=== PATIENT | male | born 1950 | race Caucasian/White ===

== ENCOUNTER 2020-01-29 14:25 | Outpatient (CLI) | payer MEDICARE, SELFPAY ==
[2020-01-29 16:15] LABS: Free T4 Free Thyroxine 1.49 ng/mL (0.78-2.19)
== END 2020-01-29 14:26 | disposition home or self-care (01) ==
LOC: ANHLAB 14:32
PROVIDERS: PCP Family Medicine Adolescent Medicine; Visit Provider Physician Assistant
DX: E03.9 Hypothyroidism, unspecified (principal)
CPT/HCPCS: 36415; 84439

== ENCOUNTER 2020-04-18 01:27 | Outpatient (CLI) | payer MEDICARE, SELFPAY ==
[2020-04-18 16:42] LABS: SARS-CoV-2 RNA PCR Negative
== END 2020-04-18 01:28 | disposition home or self-care (01) ==
LOC: ANHCOVIDDT 01:27
PROVIDERS: PCP Family Medicine Adolescent Medicine; Visit Provider Internal Medicine Cardiovascular Disease
DX: Z01.812 Encounter for preprocedural laboratory examination (principal); Z20.828 Contact with and (suspected) exposure to other viral communicable diseases
CPT/HCPCS: 87635; C9803; U0003

== ENCOUNTER 2020-04-21 05:30 | Day surgery (SDC) | payer MEDICARE, SELFPAY ==
[2020-04-20 17:07] VITALS: BMI 29.2
[2020-04-21] VITALS (10 sets, daily range): BP systolic 129–172; BP diastolic 57–100; PULSE 47–57; RESP 13–20; TEMP 36.8; O2SAT 94–100; BMI 29.2
[2020-04-21 08:57] LABS: Hematocrit 39.2 % (42.0-52.0); Hemoglobin 13.2 g/dL (14.0-18.0); Immature Platelet Fraction Pct 1.5 % (0.9-11.2); Mean Corpuscular HGB Conc 33.7 g/dl (32-36); Mean Corpuscular Hemoglobin 32.2 pg (26-34); Mean Corpuscular Volume 95.6 fl (80-100); Platelet Count Result 173 k/mm3 (150-375); Red Cell Distribution Width 13.8 % (11.5-14.5); White Blood Count 4.8 K/mm3 (4.5-10.0)
[2020-04-21 09:06] LABS: Blood Urea Nitrogen 19 mg/dL (9-20); Calcium 9.3 mg/dL (8.4-10.2); Carbon Dioxide 29 mmol/L (22-30); Chloride 103 mmol/L (98-107); Estimated CRCL calculation 63 ml/min; Estimated Glomerular Filt Rate > 60; Glucose 121 mg/dL (75-110); Potassium 4.4 mmol/L (3.4-5.0); Sodium 139 mmol/L (137-145)
--- NOTE | 2020-04-21 09:20 | SUR.PREOP ---
0840-pt presents to the [facility] for a ELIZABETH. No distress noted. AOx4. Questions answered and verbalized understanding. Consent signed. PIV started and labs obtained and sent per order. Will continue to monitor.
--- NOTE | 2020-04-21 10:24 | WPDHPUPDATE1 ---
History and Physical Update Update Date/Time: 04/21/20 10:24 History and Physical has been reviewed, including an updated exam of the patient. There are NO changes in the patient's condition. Risks, benefits, and alternatives have been discussed and questions answered. Patient agrees to proceed with procedure.
--- NOTE | 2020-04-21 10:24 | WPDMODSED ---
Moderate Sedation Note-Pt Data Patient Data Diagnosis: Mitral regurgitation Present Complaint: None Procedure to be performed/Plan: Transesophageal echocardiogram Allergies Allergy/AdvReac Type Severity Reaction Status Date / Time No Known Allergies Allergy Unverified 04/20/20 16:55 Home Medications Medication Instructions Recorded Confirmed Type C,E,zinc,copper [id number] 1 cap PO DAILY 04/20/20 04/20/20 History [Ocuvite Adult 50 Plus] amiodarone 400 mg PO DAILY 04/20/20 04/20/20 History apixaban [Eliquis] 5 mg PO BID 04/20/20 04/20/20 History glimepiride 1 mg PO DAILY 04/20/20 04/20/20 History losartan 100 mg PO DAILY 04/20/20 04/20/20 History magnesium 200 mg PO BID 04/20/20 04/20/20 History metformin 500 mg PO BID 04/20/20 04/20/20 History metoprolol succinate 200 mg PO DAILY 04/20/20 04/20/20 History multivitamin 1 tablet PO DAILY 04/20/20 04/20/20 History simvastatin 40 mg PO HS 04/20/20 04/20/20 History Current Medications: See this Sedation/Anesthesia: No previous sedation/anesthesia problems (including family history). [facility] Past Medical History Medical History Diabetes mellitus History of cardiomyopathy Hypertension Mitral regurgitation Paroxysmal atrial fibrillation Family History Family History Unknown No cardiac disease Social History Social History Social History: , lives with Smoking status: Never smoker Mod Sed Physical Exam Physical Exam Pre Procedural Exam: Normal: Appearance, Eyes, Ears, Nose, Neck (Supple, normal range of motion), Throat (Posterior hypopharynx clear, nonerythematous), Airway (Normal anatomy, no obstruction), Lungs (Clear to auscultation bilaterally), Heart Size, Heart Rate, Neuro Exam, Abdomen, Liver, Kidneys, Extremities and Skin and Variation: Heart Rhythm (Irregularly irregular) Hours since solid foods: 12 Hours since liquid intake: 12 Internal Medicine - PN: Obj Da Vital Signs Vital Signs: Vital Signs - 24 hr 04/21/20 08:59 Temperature 36.8 C Pulse Rate 54 L Respiratory Rate 20 Blood Pressure 172/73 H Pulse Oximetry 100 Labs CBC & Chem 7: 04/21/20 08:49 04/21/20 08:49 Labs: Laboratory Results - last 24 hr 04/21/20 04/21/20 08:49 08:49 WBC 4.8 RBC 4.10 L Hgb 13.2 L Hct 39.2 L MCV 95.6 MCH 32.2 MCHC 33.7 RDW 13.8 Plt Count 173 MPV 9.0 % Immature Plt Fraction 1.5 Sodium 139 Potassium 4.4 Chloride 103 Carbon Dioxide 29 BUN 19 Creatinine 1.00 Estim Creat Clear Calc 63 Estimated GFR > 60 Glucose 121 H Calcium 9.3 TSH 7.310 H ASA Classification/Sedation ASA Classification/Sedation ASA Class: III Emergent: No Risks: Risks, benefits and alternatives explained and patient/family accepted plan for sedation. Patient re-evaluated immediately prior to sedation.
--- NOTE | 2020-04-21 11:01 | WPDTEECHO ---
ELIZABETH TransEsophageal Echocardiogram Date of procedure: 04/21/20 Procedure Type: Transesophageal echocardiogram Diagnosis: Mitral regurgitation Indications: Mitral regurgitation Image Quality: Good Findings: Brief history present illness: Patient is a pleasant 69-year-old male with a history of cardiomyopathy, paroxysmal atrial fibrillation, hypertension, diabetes mellitus, dyslipidemia with suggestion of moderate to severe mitral regurgitation on echocardiogram referred for transesophageal echocardiogram for further evaluation of mitral regurgitation severity to clarify management. Procedure in detail: After verbal and written informed consent was obtained the patient risks, benefits, and alternatives explained in detail the patient agreed to proceed with the plan of care as outlined above. The patient was evaluated at bedside in the [facility] procedure room. The posterior oropharynx, neck, and jaw angle all within normal limits on examination. Lungs were clear to auscultation. See pre-sedation note for further details The patient was then placed in the appropriate 30 to 45 degree angle supine position at a slight left lateral decubitus position. Patient was monitored throughout the study with telemetry, oxygen saturation, end-tidal CO2 monitoring, blood pressure, heart rate, and respirations. The posterior hypopharynx was then locally anesthetized using repeated administration of Hurricaine spray as well as gargled viscous lidocaine. After local anesthetic of the posterior hypopharynx was achieved and the oral bite block placed, moderate sedation was administered. After confirmation of adequate moderate sedation, the transesophageal echocardiogram probe was advanced through the oral bite block into the posterior hypopharynx and into the esophagus easily and without complication. Multiple, multiplanar echocardiographic images were obtained in multiple standard re- projections. Pulsed wave, continuous-wave, and color-flow Doppler were utilized in conjunction with this study. At the conclusion of the study, the transesophageal echocardiogram probe was removed easily and without complication. The patient tolerated the procedure well without difficulty. Patient was in sinus rhythm throughout the study. Moderate Sedation/Anesthesia administration: Patient reports no prior problems with sedation/anesthesia. Please see pre-sedation noted for physical examination documentation. As noted above, after adequate local anesthesia of the posterior hypopharynx was achieved, a total of 2 mg intravenous Versed and a total of 75 mcg intravenous Fentanyl in multiple divided doses was administered for moderate sedation. Sedation start time was 1037 and end time was 1059 for a total intra-service/procedure face-face time of 22 minutes. Sedation was administered by a qualified/certified observer Chepe Matute RN under my supervision with intra-procedure [id number] observation and management throughout the entirety of the procedure. There were no other issues or complications and patient tolerated the procedure well. See post-anesthesia documentation. Findings: Left ventricular size and systolic function within normal limits without wall motion abnormalities with ejection fraction of 60%. Right ventricular size and systolic function withinnormal limits. Left atrium is mildly enlarged. Right atrial size is normal. Interatrial septum is anatomically normal without evidence of shunt with color-flow Doppler nor with injection of agitated saline. Mitral valve is anatomically normal with preserved leaflet excursion. There is mild thickening at leaflet tips with mild mal-coaptation evident. There are at least 2 separate regurgitant jets identified with the largest mild to at moderate in severity. The tricuspid valve is anatomically normal with normal leaflet excursion with trivial regurgitation identified. No mobile elements identified. The aortic valve was an an
--- NOTE | 2020-04-21 12:37 | SUR.PHASEII ---
1215-pt given D/C orders and instructions. Questions answered and verbalized understanding. PIV removed intact. Taken via wheelchair to waiting vehicle. No distress verbalized or observed at time of departure.
== END 2020-04-21 12:14 | disposition home or self-care (01) ==
PROVIDERS: PCP Family Medicine Adolescent Medicine; Visit Provider Internal Medicine Cardiovascular Disease
PROC: (CPT 93312; principal; 2020-04-21 10:00)
DX: I34.0 Nonrheumatic mitral (valve) insufficiency (principal); I48.0 Paroxysmal atrial fibrillation; I42.9 Cardiomyopathy, unspecified; I11.0 Hypertensive heart disease with heart failure; I50.42 Chronic combined systolic (congestive) and diastolic (congestive) heart failure; E78.5 Hyperlipidemia, unspecified; E11.9 Type 2 diabetes mellitus without complications; Z79.01 Long term (current) use of anticoagulants; Z79.84 Long term (current) use of oral hypoglycemic drugs
CPT/HCPCS: 36415; 80048; 84443; 85027; 85055; 93312; 93320; 93325; J2250; J3010; J7040

== ENCOUNTER 2020-04-23 07:36 | Outpatient (CLI) | payer MEDICARE, SELFPAY | END 2020-04-23 07:37 | disposition home or self-care (01) | PROVIDERS: PCP Family Medicine Adolescent Medicine | DX: I48.19 Other persistent atrial fibrillation (principal) | CPT/HCPCS: 36415; 84443 ==

== ENCOUNTER 2020-06-03 12:21 | Outpatient (RCR) | payer SELFPAY | END 2020-06-03 23:59 | disposition home or self-care (01) | LOC: ANHAUDIO 12:21 | PROVIDERS: PCP Family Medicine Adolescent Medicine; Visit Provider Family Medicine Adolescent Medicine | DX: Z46.1 Encounter for fitting and adjustment of hearing aid (principal) | CPT/HCPCS: 99199 ==

== ENCOUNTER 2020-07-16 07:07 | Outpatient (CLI) | payer MEDICARE, SELFPAY ==
[2020-07-16 08:02] LABS: Alanine Aminotransferase 60 U/L (4-50); Albumin Level 4.4 g/dL (3.5-5.1); Alkaline Phosphatase 34 U/L (38-126); Anion Gap 7 mmol/L (8-16); Aspartate Amino Transferase 42 U/L (17-59); Blood Urea Nitrogen 26 mg/dL (9-20); Calcium 8.9 mg/dL (8.4-10.2); Carbon Dioxide 26 mmol/L (22-30); Chloride 106 mmol/L (98-107); Estimated Glomerular Filt Rate 55; Glucose 102 mg/dL (75-110); Potassium 4.1 mmol/L (3.4-5.0); Sodium 139 mmol/L (137-145)
[2020-07-16 11:26] LABS: Free T4 Free Thyroxine Reflex 1.44 ng/dL (0.78-2.19)
[2020-07-16 13:13] LABS: Total Triiodothyronine (T3) 0.94 NG/ML (0.97-1.69)
== END 2020-07-16 07:08 | disposition home or self-care (01) ==
PROVIDERS: PCP Family Medicine Adolescent Medicine; Visit Provider Nurse Practitioner Adult Health
DX: Z79.899 Other long term (current) drug therapy (principal)
CPT/HCPCS: 36415; 80053; 84439; 84443; 84480

== ENCOUNTER 2020-09-16 07:09 | Outpatient (CLI) | payer MEDICARE, SELFPAY ==
[2020-09-16 07:45] LABS: Anion Gap 7 mmol/L (8-16); Blood Urea Nitrogen 23 mg/dL (9-20); Calcium 9.1 mg/dL (8.4-10.2); Carbon Dioxide 30 mmol/L (22-30); Chloride 104 mmol/L (98-107); Estimated Glomerular Filt Rate 60; Glucose 146 mg/dL (75-110); Potassium 4.4 mmol/L (3.4-5.0); Sodium 141 mmol/L (137-145)
== END 2020-09-16 07:10 | disposition home or self-care (01) ==
PROVIDERS: PCP Family Medicine Adolescent Medicine; Visit Provider Internal Medicine Cardiovascular Disease
DX: E11.59 Type 2 diabetes mellitus with other circulatory complications (principal); I10 Essential (primary) hypertension
CPT/HCPCS: 36415; 80048

== ENCOUNTER 2020-11-24 09:55 | Outpatient (RCR) | payer MEDICARE, SELFPAY | END 2020-11-24 23:59 | disposition home or self-care (01) | LOC: ANHAUDIO 09:55 | PROVIDERS: PCP Family Medicine Adolescent Medicine; Visit Provider Family Medicine Adolescent Medicine | DX: Z46.1 Encounter for fitting and adjustment of hearing aid (principal) | CPT/HCPCS: 99199 ==

== ENCOUNTER → 2021-02-19 01:41 | Outpatient (CLI) | payer MEDICARE, SELFPAY ==
[2021-02-19 19:39] LABS: SARS-CoV-2 RNA PCR Negative
== END ==
PROVIDERS: PCP Family Medicine Adolescent Medicine; Visit Provider Internal Medicine Gastroenterology
DX: Z01.812 Encounter for preprocedural laboratory examination (principal); Z20.822 Contact with and (suspected) exposure to COVID-19
CPT/HCPCS: C9803; U0003; U0005

== ENCOUNTER 2021-02-22 00:38 | Day surgery (SDC) | payer MEDICARE, SELFPAY ==
[2021-02-09 14:15] VITALS: BMI 28.6
--- NOTE | 2021-02-12 09:30 | PC.NURSE ---
Received instruction from Dr. Fitzgerald regarding Eliquis hold for pt's procedure on 02/22/[address] Barney. Called and instructed pt. to hold Eliquis for 48 hours prior to procedure, as instructed by Dr. Fitzgerald. Pt. verbalizes understanding. Papo Shah RN 02/12/21 0930
[2021-02-22 11:33] VITALS: BP 151/82; PULSE 82; RESP 18; TEMP 36.3; O2SAT 99; BMI 29.1
[2021-02-22] MEDS: LACTATED RINGERS 1,000 ML 150 ML IV CONT (11:44)
[2021-02-22 11:48] LABS: Glucose Point of Care 130 (65-105)
--- NOTE | 2021-02-22 12:02 | WPDGICN ---
GI Consult Note Consult date/time: 02/22/21 12:02 HPI: The reason for visit is colonoscopy. This very pleasant gentleman seen in consultation request of the primary physician. Impression: Screening and surveillance colonoscopy. The patient has history adenomatous colon polyps. Atrial fibrillation status post ablation. Cardiomyopathy. DM. HLD. HTN. Recommendation: Colonoscopy. History: This very pleasant gentleman is negative GI review systems. He has a history of adenomatous colon polyps. He is here for screening and surveillance. Physical examination: General: very pleasant patient in no acute distress. HEENT: Head was normocephalic sclerae is clear mouth without masses neck was supple. Heart: Rate rhythm regular without S3 or S4. Lungs: CTA. Abdomen: Soft with no guarding or rigidity. Bowel sounds were active. Neurologic: Cranial nerves 2 through 12 intact. No focal defects. No clonus. Musculoskeletal system: Revealed no joint tenderness or swelling no muscle atrophy. Extremities: Reveal no significant edema. Skin: Warm and dry with normal turgor. Mental status: intact. Patient is alert and oriented. Review of Systems Review of Systems: All systems reviewed & are unremarkable except as noted in HPI and below PMFSH Past Medical History Medical History (Updated 02/22/21 @ 12:06 by Beny Barney DO) Adenomatous colon polyp Congestive heart failure (CHF) EF 60% Diabetes mellitus History of cardiomyopathy Hypertension Mitral regurgitation Paroxysmal atrial fibrillation Surgical History Surgical History (Updated 02/22/21 @ 12:06 by Beny Barney DO) H/O cardiac radiofrequency ablation History of lung surgery Hx of colonoscopy Family History Family History Unknown No cardiac disease Social History Social History Social History: , lives with Smoking status: Never smoker Alcohol intake: current Drinks per week: 1 Living arrangements: with family Gender identity (if verbalized by the patient): Male Spiritual care concerns: No Meds Home Medications and Allergies Home Medications Medication Instructions Recorded Confirmed Type Eliquis 5 mg PO BID 04/20/20 02/09/21 History Ocuvite Adult 50 Plus 1 cap PO DAILY 04/20/20 02/09/21 History glimepiride 1 mg PO DAILY 04/20/20 02/09/21 History losartan 100 mg PO DAILY 04/20/20 02/09/21 History magnesium 400 mg PO BID 04/20/20 02/09/21 History metformin 500 mg PO BID 04/20/20 02/09/21 History metoprolol succinate 100 mg PO DAILY 04/20/20 02/09/21 History multivitamin 1 tablet PO DAILY 04/20/20 02/09/21 History simvastatin 40 mg PO HS 04/20/20 02/09/21 History ascorbic acid (vitamin C) 1 g PO DAILY 02/09/21 02/09/21 History cholecalciferol (vitamin D3) 125 mcg PO DAILY 02/09/21 02/09/21 History [Vitamin D3] hydrochlorothiazide 12.5 mg PO DAILY 02/09/21 02/09/21 History zinc 100 mg PO DAILY 02/09/21 02/09/21 History Allergies Allergy/AdvReac Type Severity Reaction Status Date / Time No Known Allergies Allergy Verified 02/22/21 11:31 Vital Signs Vital Signs - 24 hr 02/22/21 11:33 Temperature 36.3 C L Pulse Rate 82 Respiratory Rate 18 Blood Pressure 151/82 H Pulse Oximetry 99
--- NOTE | 2021-02-22 12:02 | WPDANESEPPF ---
Anes - Initial Pre Proc Eval Procedure: Operation Date: 02/22/21 12:00 Proposed Procedures p Screening Colonoscopy - Beny Barney DO Date/Time: 02/22/21 12:02 Surgeon: Beny Barney DO Pre Op Diagnosis: neoplasm screening Patient Data Age: 70 Gender: M Height: 5 ft 9 in Weight: 89.5 kg Last Vital Signs Temp 97.4 F L 02/22/21 11:33 Pulse 82 02/22/21 11:33 Resp 18 02/22/21 11:33 BP 151/82 H 02/22/21 11:33 Pulse Ox 99 02/22/21 11:33 Allergies Allergy/AdvReac Type Severity Reaction Status Date / Time No Known Allergies Allergy Verified 02/22/21 11:31 Home Medications Medication Instructions Recorded Confirmed Type Eliquis 5 mg PO BID 04/20/20 02/09/21 History Ocuvite Adult 50 Plus 1 cap PO DAILY 04/20/20 02/09/21 History glimepiride 1 mg PO DAILY 04/20/20 02/09/21 History losartan 100 mg PO DAILY 04/20/20 02/09/21 History magnesium 400 mg PO BID 04/20/20 02/09/21 History metformin 500 mg PO BID 04/20/20 02/09/21 History metoprolol succinate 100 mg PO DAILY 04/20/20 02/09/21 History multivitamin 1 tablet PO DAILY 04/20/20 02/09/21 History simvastatin 40 mg PO HS 04/20/20 02/09/21 History ascorbic acid (vitamin C) 1 g PO DAILY 02/09/21 02/09/21 History cholecalciferol (vitamin D3) 125 mcg PO DAILY 02/09/21 02/09/21 History [Vitamin D3] hydrochlorothiazide 12.5 mg PO DAILY 02/09/21 02/09/21 History zinc 100 mg PO DAILY 02/09/21 02/09/21 History Laboratory Tests 02/22/21 11:40 POC Capillary Glucose 130 mg/dl H mg/dl (65-105) Patient hx anesthesia problems: none Family hx anesthesia problems: none PMFSH Past Medical History Medical History (Updated 02/22/21 @ 12:03 by Zaheer Jurado MD) Congestive heart failure (CHF) EF 60% Diabetes mellitus History of cardiomyopathy Hypertension Mitral regurgitation Paroxysmal atrial fibrillation Family History Family History Unknown No cardiac disease Social History Social History Social History: , lives with Smoking status: Never smoker Alcohol intake: current Drinks per week: 1 Living arrangements: with family Gender identity (if verbalized by the patient): Male Spiritual care concerns: No Anes - Eval Final PreProcedure Day of Procedure 02/22/21 12:02 Patient weight: overweight Heart: regular rate and rhythm Lungs: clear to auscultation Airway: Mallampati scale class II Neurological: alert and oriented Last oral intake: >/= 8 hours ASA classification: III Emergent: no Anesthetic plan: proceed Anesthesia type and monitoring: general GIVS and standard monitoring Informed Consent: The patient's anesthetic plan and its attendant risks and benefits were discussed with the patient/family/POA. Questions were solicited and answers provided to the satisfaction of the patient/family/POA.
[2021-02-22 13:31] VITALS: BP 120/70; PULSE 70; RESP 12; O2SAT 97
[2021-02-22 13:41] VITALS: BP 99/68; PULSE 68; RESP 19; O2SAT 98
[2021-02-22 13:51] VITALS: BP 125/64; PULSE 58; RESP 17; O2SAT 100
== END 2021-02-22 13:51 | disposition home or self-care (01) ==
PROVIDERS: PCP Family Medicine Adolescent Medicine; Visit Provider Internal Medicine Gastroenterology
PROC: 0DJD8ZZ Inspection of Lower Intestinal Tract, Via Natural or Artificial Opening Endoscopic (ICD-10-PCS; CPT 45378; principal; 2021-02-22 12:00)
DX: Z12.11 Encounter for screening for malignant neoplasm of colon (principal); D12.2 Benign neoplasm of ascending colon; K64.8 Other hemorrhoids; I11.0 Hypertensive heart disease with heart failure; I50.9 Heart failure, unspecified; I42.9 Cardiomyopathy, unspecified; E78.5 Hyperlipidemia, unspecified; E11.9 Type 2 diabetes mellitus without complications; I48.0 Paroxysmal atrial fibrillation; I34.0 Nonrheumatic mitral (valve) insufficiency; Z79.01 Long term (current) use of anticoagulants; Z79.84 Long term (current) use of oral hypoglycemic drugs
CPT/HCPCS: 45385; 82948; 88305; J2704; J7120

== ENCOUNTER 2021-04-20 11:00 | Outpatient (RCR) | payer MEDICARE, SELFPAY | END 2021-04-20 23:59 | disposition home or self-care (01) | LOC: ANHAUDIO 11:00 | PROVIDERS: PCP Family Medicine Adolescent Medicine; Visit Provider Family Medicine Adolescent Medicine | DX: Z46.1 Encounter for fitting and adjustment of hearing aid (principal) | CPT/HCPCS: 99199 ==

== ENCOUNTER 2021-07-30 07:49 | Outpatient (RCR) | payer MEDICARE, SELFPAY | END 2021-07-30 23:59 | disposition home or self-care (01) | LOC: ANHAUDIO 07:49 | PROVIDERS: PCP Family Medicine Adolescent Medicine; Visit Provider Family Medicine Adolescent Medicine | DX: Z46.1 Encounter for fitting and adjustment of hearing aid (principal) | CPT/HCPCS: 99199 ==

== ENCOUNTER 2021-10-09 10:11 | Inpatient (IN) | payer MEDICARE, SELFPAY ==
[2021-10-09] VITALS (19 sets, daily range): BP systolic 84–184; BP diastolic 58–95; PULSE 67–140; RESP 13–23; TEMP 36.6–36.7; O2SAT 91–100; BMI 29.0
--- NOTE | ~2021-10-09 | XR_ITS ---
EXAMINATION: XR chest 1V portable DATE: 10/09/2021 10:35 INDICATION: ST elevation myocardial infarction TECHNIQUE: frontal view of the chest was obtained. COMPARISON: Chest radiograph dated 12/01/2016 and 11/29/2016 FINDINGS: Minimal chronic curvilinear atelectasis/scarring at the lateral left midlung zone. No new airspace op acities, pulmonary edema, pleural effusion or pneumothorax. The cardiomediastinal silhouette is brad l with small left paracardial fat pad. Calcified bilateral hilar lymph nodes consistent with old gran ulomatous disease. IMPRESSION: 1. No acute cardiopulmonary disease. Reviewed, dictated and finalized at location A. T ASSISTANT
--- NOTE | 2021-10-09 10:13 | ECG_ITS ---
Measurements Intervals [place] Rate: 145 P: TN: 0 QRS: 39 QRSD: 107 T: 91 QT: 284 QTc: 442 Interpretive Statements ATRIAL FIBRILLATION WITH RAPID VENTRICULAR RESPONSE INFERIOR ST ELEVATION MYOCARDIAL INFARCT- ACUTE ABNORMAL ECG Electronically Signed On 10-09-2021 12:31:53 ANIMAL GENETICIST by Davie Bruno D.O.
--- NOTE | 2021-10-09 10:19 | ECG_ITS ---
Measurements Intervals [place] Rate: 112 P: [place]: 0 QRS: 27 QRSD: 97 T: 35 QT: 316 QTc: 432 Interpretive Statements ATRIAL FIBRILLATION WITH RAPID VENTRICULAR RESPONSE INFERIOR ST ELEVATION MYOCARDIAL INFARCT- ACUTE BASELINE ARTIFACT- II, AVR, V4-V5 ABNORMAL ECG Electronically Signed On 10-09-2021 12:34:48 LETTERSET PRESS SET UP OPERATOR by Davie Bruno D.O.
[2021-10-09] MEDS: METOPROLOL TARTRATE INJ 5 MG/5 ML VIAL IV PUSH (10:28)
--- NOTE | 2021-10-09 10:29 | PC.NURSE ---
[address] Irizarry [address] [facility] stemi standby ETA 15min
--- NOTE | 2021-10-09 10:35 | ED.CHESTPAIN ---
HPI - Chest Pain General Chief Complaint: Chest Pain Stated Complaint: Chest pain Time Seen by Provider: 10/09/21 10:20 Source: patient Mode of arrival: ambulatory Limitations: no limitations History of Present Illness HPI narrative: 71-year-old male Walk-in with complaint of of chest pain Patient states that he was out hunting deer this morning and had been sitting up in his tree for a few minutes and had a sudden onset of severe substernal pain and left arm/hand pain Not diaphoretic, no vomiting, some mild shortness of breath He had not noticed that his heart rate was rapid or irregular He has a history of atrial fibrillation and is status post an ablation done at [facility] Amongst other things he takes Eliquis and metoprolol, but did not take any of his medications this morning before heading out Related Data Home Medications Medication Instructions Recorded Confirmed Eliquis 5 mg PO BID 04/20/20 02/09/21 Ocuvite Adult 50 Plus 1 cap PO DAILY 04/20/20 02/09/21 glimepiride 1 mg PO DAILY 04/20/20 02/09/21 losartan 100 mg PO DAILY 04/20/20 02/09/21 magnesium 400 mg PO BID 04/20/20 02/09/21 metformin 500 mg PO BID 04/20/20 02/09/21 metoprolol succinate 100 mg PO DAILY 04/20/20 02/09/21 multivitamin 1 tablet PO DAILY 04/20/20 02/09/21 simvastatin 40 mg PO HS 04/20/20 02/09/21 ascorbic acid (vitamin C) 1 g PO DAILY 02/09/21 02/09/21 cholecalciferol (vitamin D3) 125 mcg PO DAILY 02/09/21 02/09/21 [Vitamin D3] hydrochlorothiazide 12.5 mg PO DAILY 02/09/21 02/09/21 zinc 100 mg PO DAILY 02/09/21 02/09/21 Allergies Allergy/AdvReac Type Severity Reaction Status Date / Time No Known Allergies Allergy Verified 10/09/21 10:30 Review of Systems Review of Systems: All systems reviewed & are unremarkable except as noted in HPI and below Constitutional: Constitutional: Reports no additional constitutional complaints, Denies chills, Denies fever(s), Denies headache(s) and Reports weakness Eyes: Eyes: Reports no additional eye complaints and Denies change in vision ENT: Denies headache(s) and Denies sore throat Cardiovascular: Cardiovascular: Reports chest pain, Reports rapid heart rate, Reports radiating jaw, neck or arm pain and Denies dyspnea Respiratory: Respiratory: Denies cough and Reports dyspnea Gastrointestinal: Gastrointestinal: Denies abdominal pain, Denies diarrhea and Denies vomiting Genitourinary: Genitourinary: Denies dysuria and Denies urinary frequency Musculoskeletal: Musculoskeletal: Denies deformity, Denies arthralgias, Denies joint swelling and Denies numbness Integumentary/Breasts: Skin/Breast: Denies rash and Denies wounds Neurologic: Denies headache(s), Denies focal weakness and Denies numbness Psychiatric: Psychiatric: Reports no additional psychiatric complaints Endocrine: Endocrine: Reports no additional endocrine complaints Hematologic/Lymphatic: Hematologic/Lymphatic: Reports no additional hematologic/lymphatic complaints Allergic/Immunologic: Allergic/Immunologic: Reports no additional allergic/immunologic complaints PMFSH Past Medical History Medical History Adenomatous colon polyp Congestive heart failure (CHF) EF 60% Diabetes mellitus History of cardiomyopathy Hypertension Mitral regurgitation Paroxysmal atrial fibrillation Surgical History Surgical History H/O cardiac radiofrequency ablation History of lung surgery Hx of colonoscopy Family History Family History Unknown No cardiac disease Social History Social History Social History: , lives with Smoking status: Never smoker Alcohol intake: current Drinks per week: 1 Gender identity (if verbalized by the patient): Male Spiritual care concerns: No Exam Const: Ge
[2021-10-09 10:41] LABS: Basophils Percent Auto 0.3 % (0.2-1.2); Eosinophils Absolute Auto 0.1 K/mm3 (0-0.3); Hematocrit 36.8 % (42.0-52.0); Immature Granulocyte Absolute 0.09 K/mm3 (0.00-0.031); Immature Granulocyte Percent A 0.9 % (0-0.5); Lymphocytes Absolute Auto 2.33 K/mm3 (0.9-3.2); Lymphocytes Percent Auto 22.2 % (18.3-44.2); Mean Corpuscular HGB Conc 32.6 g/dl (32-36); Mean Corpuscular Hemoglobin 31.4 pg (26-34); Mean Corpuscular Volume 96.3 fl (80-100); Mean Platelet Volume 9.7 fl (7.4-10.4); Monocytes Absolute Auto 0.9 K/mm3 (0.1-0.6); Neutrophils Percent Auto 66.6 % (45.5-73.1); Platelet Count Result 214 k/mm3 (150-375); Red Blood Count 3.82 M/mm3 (4.6-6.20); Red Cell Distribution Width 14.3 % (11.5-14.5); White Blood Count 10.5 K/mm3 (4.5-10.0)
[2021-10-09 10:52] LABS: Alanine Aminotransferase 23 U/L (4-50); Albumin Level 4.5 g/dL (3.5-5.1); Alkaline Phosphatase 56 U/L (38-126); Anion Gap 15 mmol/L (8-16); Aspartate Amino Transferase 27 U/L (17-59); Bilirubin,Total 0.7 mg/dL (0.2-1.3); Blood Urea Nitrogen 31 mg/dL (9-20); Calcium 9.3 mg/dL (8.4-10.2); Carbon Dioxide 21 mmol/L (22-30); Chloride 101 mmol/L (98-107); Estimated CRCL calculation 62 ml/min; Estimated Glomerular Filt Rate > 60; Glucose 265 mg/dL (65-110); Lipase 412 U/L (23-300); Potassium 3.8 mmol/L (3.4-5.0); Sodium 137 mmol/L (137-145)
[2021-10-09 11:15] LABS: Troponin I 0.165 ng/mL (0.000-0.034)
--- NOTE | 2021-10-09 11:16 | WPDCARDPROC ---
Cardiac Cath Procedure Note Date of procedure:: 10/09/21 Performing physician:: Carlos Alberto Irizarry MD Date of service 10/09/2021 Indication:: Inferior STEMI Brief clinical history:: this 71 year patient past history hypertension paroxysmal atrial fibrillation status post ablation a year ago at [facility], diabetes and hyperlipidemia who presents the hospital with chest pain with EKG shows AFib with RVR in and inferior ST elevation with ST depression leads 1 and aVL. last transesophageal echo 2020 ejection fraction 60% with mild to moderate mitral regurgitation. currently is having 5/10 chest pain. center in location with no radiation. Associated with shortness of breath. last Eliquis was last night. He follows up with Dr. Fitzgerald. denies dizziness, syncope. Apparently he received IV metoprolol 5 mg 1 dosage in the emergency room. He denies alcohol drinking. Procedure Procedure performed:: 1-Moderate sedation that started at 11:23 a.m. and ended at 12:09 p.m. with total duration 46 minutes using 2mg of Versed and 50mcg fentanyl. The registered nurse was sandro davila 2-Selective left and right coronary angiogram. 3-Left heart catheterization with measurement of LVEDP and measurement of gradient across aortic valve. 4- LV angiogram. 5- deployment of a drug-eluting stent Xience 3.25 x 23 to mid RCA reducing lesion from 90% to 0% and SONIA flow 3 before and after intervention. 6-Right common femoral arterial angiogram. 7-Deployment of 6 [place] Angio-Seal. Sedation/Medication given:: Moderate sedation. Access site:: Right common femoral artery. Estimated blood loss:: 10cc Procedure note:: After informed consent patient was brought in to medical laboratory technical officer with the was draped and prepped in usual manner. Moderate sedation was given and the right groin was infiltrated using 1% lidocaine. 6 [place] sheath was obtained using micropuncture needle and the modified Seldinger technique. Selective right coronary angiogram was done using JR4 guide catheter with the tip of the catheter placed to the right coronary artery. then coronary luge wire was advanced distal RCA. Balloon angioplasty was done in the mid RCA using 3x15 balloon with inflation done under 12 atmospheres for 25 seconds. Two inflations. Then with a attempted to deliver a stent 3.25 x 23 to mid RCA but could not advance it. We removed the stent and then took GuideLiner. and then despite that we could not deliver the stent. The guide catheter came out. we went back with the guide catheter and rewired the RCA using the same coronary luge wire and then took the GuideLiner and then after that we took 3 x 15 new balloon and inflated it under 12atmospheres in the mid RCA. 4 inflations. then we managed to deliver the stent and deployed it under nominal pressure for 27 seconds. Selective left coronary angiogram was done using JL4 catheter with the tip of the catheter placed in the left main coronary artery. After that 5 [place] pigtail catheter was advanced across the aortic valve into the left ventricle with measurement of LVEDP and measurement of gradient across aortic valve. LV angiogram was doneRight common femoral arterial angiogram was done. Findings:: 1- left coronary artery is a large artery that divides into large LAD, large circumflex artery. Left main has calcification diffuse 30% distal 2- left anterior descending artery is a large artery that runs and wraps around the apex. diffuse calcification the proximal mid segment and at the junction of the proximal to mid segment 30-40%. Calcified 3- leftcircumflex artery is a large artery calcifications proximally. Large OM1 proximally with minimal irregularities in the rest of the vessel minimal irregularities. 4- right coronary artery is Large artery and dominant and has diffuse calcification in the mid segment. High-grade stenosis 90% in the mid segment. SONIA flow 3 5- LVEDP was 25 mm Hgand no gradient across aortic valve. 6- opening arterial p
--- NOTE | 2021-10-09 11:16 | PM.IMHP ---
H&P: HPI History of Present Illness Date/Time: date of service 10/09/21 11:16 Chief Complaint: chest pain Narrative: this 71 year patient past history hypertension paroxysmal atrial fibrillation status post ablation a year ago [place] [facility] [place], diabetes and hyperlipidemia who presents the hospital with chest pain with EKG shows AFib with RVR in and inferior ST elevation with ST depression leads 1 and aVL. last transesophageal echo 2020 ejection fraction 60% with mild to moderate mitral regurgitation. currently is having 5/10 chest pain. center in location with no radiation. Associated with shortness of breath. last Eliquis was last night. He follows up with Dr. Fitzgerald. denies dizziness, syncope. Apparently he received IV metoprolol 5 mg 1 dosage in the emergency room. He denies alcohol drinking. Review of Systems Review of Systems: All systems reviewed & are unremarkable except as noted in HPI and below Constitutional: Constitutional: Denies chills, Denies fatigue, Denies fever(s), Denies headache(s) and Denies snoring Eyes: Eyes: Denies eye discharge and Denies loss of vision ENT: Denies dizziness, Denies headache(s), Denies nasal discharge and Denies sore throat Cardiovascular: Cardiovascular: Reports as per HPI, Reports chest pain, Denies syncope, Denies rapid heart rate, Denies leg edema, Reports dyspnea, Denies dyspnea on exertion, Denies orthopnea and Denies paroxysmal nocturnal dyspnea Respiratory: Respiratory: Denies chest congestion, Denies cough, Reports dyspnea, Denies dyspnea on exertion, Denies snoring and Denies wheezing Gastrointestinal: Gastrointestinal: Denies abdominal pain, Denies diarrhea, Denies nausea and Denies vomiting Genitourinary: Genitourinary: Denies hematuria, Denies dysuria, Denies flank pain and Denies urinary frequency Musculoskeletal: Musculoskeletal: Denies myalgias, Denies arthralgias and Denies joint swelling Neurologic: Denies Abnormal speech present, Denies dizziness, Denies syncope, Denies headache(s), Denies focal weakness and Denies loss of vision Psychiatric: Psychiatric: Denies anxiety and Denies depression Endocrine: Endocrine: Denies cold intolerance, Denies fatigue and Denies heat intolerance Hematologic/Lymphatic: Hematologic/Lymphatic: Denies easy bleeding and Denies easy bruising Allergic/Immunologic: Allergic/Immunologic: Denies urticaria and Denies wheezing PMFSH Past Medical History Medical History Adenomatous colon polyp Congestive heart failure (CHF) EF 60% Diabetes mellitus History of cardiomyopathy Hypertension Mitral regurgitation Paroxysmal atrial fibrillation Surgical History Surgical History H/O cardiac radiofrequency ablation History of lung surgery Hx of colonoscopy Family History Family History Unknown No cardiac disease Social History Social History Social History: , lives with Smoking status: Never smoker Alcohol intake: current Drinks per week: 1 Gender identity (if verbalized by the patient): Male Spiritual care concerns: No Meds Home Medications and Allergies Home Medications Medication Instructions Recorded Confirmed Type Eliquis 5 mg PO BID 04/20/20 02/09/21 History Ocuvite Adult 50 Plus 1 cap PO DAILY 04/20/20 02/09/21 History glimepiride 1 mg PO DAILY 04/20/20 02/09/21 History losartan 100 mg PO DAILY 04/20/20 02/09/21 History magnesium 400 mg PO BID 04/20/20 02/09/21 History metformin 500 mg PO BID 04/20/20 02/09/21 History metoprolol succinate 100 mg PO DAILY 04/20/20 02/09/21 History multivitamin 1 tablet PO DAILY 04/20/20 02/09/21 History simvastatin 40 mg PO HS 04/20/20 02/09/21 History ascorbic acid (vitamin C) 1 g PO DAILY 02/09/21 02/09/21 History cholecalcifer
[2021-10-09 11:17] LABS: Prothrombin Time 13.5 Seconds (11.1-14.7)
[2021-10-09 11:18] LABS: Partial Thromboplastin Time 28.4 SECONDS (22.3-36.8)
--- NOTE | 2021-10-09 12:24 | WPDMODSED ---
Moderate Sedation Note-Pt Data Patient Data Allergies Allergy/AdvReac Type Severity Reaction Status Date / Time No Known Allergies Allergy Verified 10/09/21 10:30 Home Medications Medication Instructions Recorded Confirmed Type Eliquis 5 mg PO BID 04/20/20 02/09/21 History Ocuvite Adult 50 Plus 1 cap PO DAILY 04/20/20 02/09/21 History glimepiride 1 mg PO DAILY 04/20/20 02/09/21 History losartan 100 mg PO DAILY 04/20/20 02/09/21 History magnesium 400 mg PO BID 04/20/20 02/09/21 History metformin 500 mg PO BID 04/20/20 02/09/21 History metoprolol succinate 100 mg PO DAILY 04/20/20 02/09/21 History multivitamin 1 tablet PO DAILY 04/20/20 02/09/21 History simvastatin 40 mg PO HS 04/20/20 02/09/21 History ascorbic acid (vitamin C) 1 g PO DAILY 02/09/21 02/09/21 History cholecalciferol (vitamin D3) 125 mcg PO DAILY 02/09/21 02/09/21 History [Vitamin D3] hydrochlorothiazide 12.5 mg PO DAILY 02/09/21 02/09/21 History zinc 100 mg PO DAILY 02/09/21 02/09/21 History Sedation/Anesthesia: No previous sedation/anesthesia problems (including family history). [facility] Past Medical History Medical History Adenomatous colon polyp Congestive heart failure (CHF) EF 60% Diabetes mellitus History of cardiomyopathy Hypertension Mitral regurgitation Paroxysmal atrial fibrillation Surgical History Surgical History H/O cardiac radiofrequency ablation History of lung surgery Hx of colonoscopy Family History Family History Unknown No cardiac disease Social History Social History Social History: , lives with Smoking status: Never smoker Alcohol intake: current Drinks per week: 1 Gender identity (if verbalized by the patient): Male Spiritual care concerns: No Mod Sed Physical Exam Physical Exam Pre Procedural Exam: Normal: Appearance, Eyes, Ears, Nose, Neck, Throat, Airway, Lungs, Heart Size, Heart Rate, Heart Rhythm, Neuro Exam, Abdomen, Liver, Kidneys, Spleen, Breasts, Genitalia, Extremities and Skin Hours since solid foods: 8 Hours since liquid intake: 8 Mallampati Classification: class 1 Internal Medicine - PN: Obj Da Vital Signs Vital Signs: Vital Signs - 24 hr 10/09/21 10:20 10/09/21 10:28 10/09/21 10:29 Temperature 36.6 C Pulse Rate 140 H 140 H Respiratory Rate Blood Pressure 184/92 H Pulse Oximetry 91 100 10/09/21 10:34 10/09/21 11:01 Temperature Pulse Rate 119 H 125 H Respiratory Rate 21 H 22 H Blood Pressure 158/95 H 154/92 H Pulse Oximetry 100 100 Meds/Results Radiology Results: ITS Impressions Chest X-Ray 10/09/21 10:48 IMPRESSION: 1. No acute cardiopulmonary disease. Labs CBC & Chem 7: 10/09/21 10:28 10/09/21 10:28 Labs: Laboratory Results - last 24 hr 10/09/21 10/09/21 10/09/21 10:26 10:28 10:28 WBC 10.5 H RBC 3.82 L Hgb 12.0 L Hct 36.8 L MCV 96.3 MCH 31.4 MCHC 32.6 RDW 14.3 Plt Count 214 MPV 9.7 Immature Gran % (Auto) 0.9 H Neut % (Auto) 66.6 Lymph % (Auto) 22.2 [place] % (Auto) 9.0 H Eos % (Auto) 1.0 Baso % (Auto) 0.3 Lymph # (Auto) 2.33 [place] # (Auto) 0.9 H Eos # (Auto) 0.1 Baso # (Auto) 0.0 Abs Immat Gran (auto) 0.09 H Absolute Neuts (auto) 7.0 H Absolute Nucleated RBC 0.0 Nucleated RBC % 0.0 PT INR APTT Sodium 137 Potassium 3.8 Chloride 101 Carbon Dioxide 21 L Anion Gap 15 BUN 31 H Creatinine 1.00 Estim Creat Clear Calc 62 Estimated GFR > 60 Glucose 265 H Calcium 9.3 Total Bilirubin 0.7 AST 27 ALT 23 Alkaline Phosphatase 56 Troponin I 0.165 H* Total Protein 7.0 Albumin 4.5 Lipase 412 H Blood Type O Positive Antibody Screen Ne
--- NOTE | 2021-10-09 12:50 | PC.NURSE ---
This patient, Marcos Calderon, was admitted to ICU 6. Patient/family oriented to hospital policies and general routines including ID bracelet, bed and alarms, visiting hours, pain management, procedures, bathroom and other care routines, personal items, smoking policy, room service/diet, and visiting hours. Information on how to activate the Rapid Response Team has been discussed. Patient/Family are encouraged to report perceived risks to care and to ask questions if they do not understand what they are told or what they should do.
--- NOTE | 2021-10-09 13:03 | ECG_ITS ---
Measurements Intervals [place] Rate: 72 P: 53 MT: 173 QRS: -8 QRSD: 78 T: -36 QT: 369 QTc: 405 Interpretive Statements SINUS RHYTHM WITH INTERMITTENT ATRIAL FIBRILLATION WITH ABERRANCY (RBBB) INFERIOR INFARCT- PROBABLY RECENT BASELINE WANDER- II, AVR, AVF, V1-V3 ABNORMAL ECG Electronically Signed On 10-09-2021 20:33:18 RIGGING SUPERVISOR by Davie Bruno D.O.
[2021-10-09] MEDS: SODIUM CHLORIDE 0.9% IV 1,000 ML 100 ML IV CONT (13:31)
--- NOTE | 2021-10-09 14:50 | WPDCNINT ---
Assessment and Plan Assessment and plan (1) ST elevation myocardial infarction (STEMI): Code(s): I21.3 - ST elevation (STEMI) myocardial infarction of unspecified site Status: Acute Assessment and Plan: S/P PCI and successful stenting of high-grade stenosis in the mid RCA. DAPT, Statin, ARB and BB Check ECHO ICU Monitoring Eliquis will be resumed tomorrow by cardiology (2) Diabetes mellitus: Code(s): E11.9 - Type 2 diabetes mellitus without complications Status: Acute Assessment and Plan: Sliding scale insulin Diabetic diet (3) Atrial fibrillation with RVR: Code(s): I48.91 - Unspecified atrial fibrillation Status: Acute Assessment and Plan: Currently normal sinus rhythm Beta-fernando p.o. Resume Eliquis tomorrow (4) Mitral regurgitation: Code(s): I34.0 - Nonrheumatic mitral (valve) insufficiency Status: Acute Assessment and Plan: ECHO is ordered and pending (5) Hypertension: Code(s): I10 - Essential (primary) hypertension Status: Acute Assessment and Plan: Currently on hydrochlorothiazide beta-fernando and ARB Monitor and adjust med accordingly (6) Hyperlipidemia: Code(s): E78.5 - Hyperlipidemia, unspecified Status: Acute Assessment and Plan: Continue Zocor Additional Plan DVT prophylaxis -SCDs today Eliquis tomorrow Nutrition -diabetic Code Status - Full Code [employer] Consult Note Consult date: 10/09/21 HPI: Marcos Calderon is a 71 year old male with PMH of HTN, paroxysmal atrial fibrillation status post ablation a year ago at [facility], DM, hypertension and hyperlipidemia who presented to the hospital with chest pain. Patient states the pain started around 830 this morning while he was doing some work. Pain was burning in quality, in center of the chest, 8/10 severe, radiated to his arms and was associated with nausea and sweating. He also felt short of breath. No palpitations or syncope. The pain resolved after he had cardiac catheterization. After that he was feeling fine with no issues. Currently he is chest pain-free and pain has fully resolved. All other systems were reviewed and were negative In ED patient's EKG showeds AFib with RVR in and inferior ST elevation with ST depression leads 1 and aVL. Pt?s last transesophageal echo 2019 ejection fraction 60% with mild to moderate mitral regurgitation. Pt was diagnosed with Inferior STEMI and was taken to lab[facility] sinking. Pt underwent successful stenting of high-grade stenosis in the mid RCA. He converted to sinus rhythm. EF 55% and had moderate MR Review of Systems Review of Systems: All systems reviewed & are unremarkable except as noted in HPI and below (HPI) [facility] Past Medical History Medical History Adenomatous colon polyp Congestive heart failure (CHF) EF 60% Diabetes mellitus History of cardiomyopathy Hypertension Mitral regurgitation Paroxysmal atrial fibrillation Surgical History Surgical History H/O cardiac radiofrequency ablation History of lung surgery Hx of colonoscopy Family History Family History Unknown No cardiac disease Social History Social History Social History: , lives with Smoking status: Never smoker Alcohol intake: never Drinks per week: 1 Substance use: never Substance use type: does not use Gender identity (if verbalized by the patient): Male Spiritual care concerns: No Meds Home Medications and Allergies Home Medications Medication Instructions Recorded Confirmed Type Eliquis 5 mg PO BID 04/20/20 10/09/21 History Ocuvite Adult 50 Plus 1 cap PO DAILY 04/20/20 10/09/21 History glimepiride 1 mg PO DAILY 04/20/20 10/09/21 History losartan 100 mg PO DAILY
[2021-10-09 17:05] LABS: Glucose Point of Care 148 mg/dl (65-105)
[2021-10-09] MEDS: MAGNESIUM OXIDE 400 MG TABLET PO (18:14)
[2021-10-09] MEDS: INSULIN ASPART (*BKC) 100 UNITS/ML SUB-Q (20:32)
[2021-10-09] MEDS: SIMVASTATIN 20 MG TABLET 40 MG PO (20:34)
[2021-10-09] MEDS: TICAGRELOR 90 MG TABLET PO (20:34)
[2021-10-09 21:50] LABS: Glucose Point of Care 266 mg/dl (65-105)
[2021-10-10] VITALS (15 sets, daily range): BP systolic 106–139; BP diastolic 64–79; PULSE 85–122; RESP 20–24; TEMP 36.3–36.8; O2SAT 95–100
[2021-10-10 05:41] LABS: Hematocrit 33.1 % (42.0-52.0); Hemoglobin 11.2 g/dL (14.0-18.0); Mean Corpuscular HGB Conc 33.8 g/dl (32-36); Mean Corpuscular Hemoglobin 30.9 pg (26-34); Mean Corpuscular Volume 91.2 fl (80-100); Mean Platelet Volume 9.1 fl (7.4-10.4); Platelet Count Result 165 k/mm3 (150-375); Red Blood Count 3.63 M/mm3 (4.6-6.20); Red Cell Distribution Width 14.1 % (11.5-14.5); White Blood Count 8.6 K/mm3 (4.5-10.0)
[2021-10-10 05:53] LABS: Alanine Aminotransferase 39 U/L (4-50); Albumin Level 3.8 g/dL (3.5-5.1); Alkaline Phosphatase 40 U/L (38-126); Anion Gap 7 mmol/L (8-16); Aspartate Amino Transferase 143 U/L (17-59); Bilirubin,Total 1.1 mg/dL (0.2-1.3); Blood Urea Nitrogen 18 mg/dL (9-20); Calcium 8.9 mg/dL (8.4-10.2); Carbon Dioxide 25 mmol/L (22-30); Chloride 103 mmol/L (98-107); Estimated CRCL calculation 58 ml/min; Estimated Glomerular Filt Rate > 60; Glucose 160 mg/dL (65-110); Magnesium 1.5 mg/dL (1.6-2.3); Sodium 135 mmol/L (137-145)
--- NOTE | 2021-10-10 07:00 | ECG_ITS ---
Measurements Intervals [place] Rate: 109 P: 36 NV: 155 QRS: -15 QRSD: 86 T: -25 QT: 335 QTc: 452 Interpretive Statements SINUS TACHYCARDIA DELAYED PRECORDIAL R/S TRANSITION LOW QRS VOLTAGE IN PRECORDIAL LEADS INFERIOR INFARCT, PROBABLY RECENT BASELINE ARTIFACT- V1, V5-V6 ABNORMAL ECG Electronically Signed On 10-10-2021 7:53:23 VEGETABLE VENDOR by Davie Bruno D.O.
[2021-10-10] MEDS: hydroCHLOROthiazide 12.5 MG CAPSULE PO (09:10)
[2021-10-10] MEDS: LOSARTAN POTASSIUM 100 MG TABLET PO (09:10)
[2021-10-10] MEDS: MAGNESIUM OXIDE 400 MG TABLET PO ×2 (09:11→17:41)
[2021-10-10] MEDS: TICAGRELOR 90 MG TABLET PO ×2 (09:11→20:08)
[2021-10-10] MEDS: ASPIRIN 81 MG ENTERIC TABLET PO (09:11)
[2021-10-10] MEDS: APIXABAN 5 MG TABLET PO ×2 (09:11→17:41)
[2021-10-10] MEDS: METOPROLOL SUCCINATE EXT REL 100 MG TABCR PO (09:11)
[2021-10-10] MEDS: MAGNESIUM SULF 2 GM/WATER 50ML 2 GM/50 ML BAG IVPB (09:14)
[2021-10-10 09:22] LABS: Glucose Point of Care 166 mg/dl (65-105)
--- NOTE | 2021-10-10 11:36 | WPDINTPN ---
Progress Note: A&P Assessment and Plan (1) ST elevation myocardial infarction (STEMI): Code(s): I21.3 - ST elevation (STEMI) myocardial infarction of unspecified site Status: Acute Assessment and Plan: S/P PCI and successful stenting of high-grade stenosis in the mid RCA. DAPT, Statin, ARB and BB Pending ECHO ICU Monitoring Eliquis will be resumed today (2) Diabetes mellitus: Code(s): E11.9 - Type 2 diabetes mellitus without complications Status: Acute Assessment and Plan: Sliding scale insulin Diabetic diet (3) Atrial fibrillation with RVR: Code(s): I48.91 - Unspecified atrial fibrillation Status: Acute Assessment and Plan: Currently normal sinus rhythm Beta-fernando p.o. Resume Eliquis today (4) Mitral regurgitation: Code(s): I34.0 - Nonrheumatic mitral (valve) insufficiency Status: Acute Assessment and Plan: ECHO is ordered and pending (5) Hypertension: Code(s): I10 - Essential (primary) hypertension Status: Acute Assessment and Plan: Currently on hydrochlorothiazide beta-fernando and ARB Monitor and adjust med accordingly (6) Hyperlipidemia: Code(s): E78.5 - Hyperlipidemia, unspecified Status: Acute Assessment and Plan: Continue Zocor Additional Plan DVT prophylaxis - Eliquis Nutrition -diabetic Code Status - Full Code PT OT, incentive spirometry, up in chair Transfer out of ICU today Subjective Date/time seen: 10/10/21 11:36 no new complaints this morning. Feels fine and slept well. No chest pain shortness of breath nausea vomiting headache. He ate his dinner last night. Wants to get out of bed. All other system were reviewed and were negative. Sinus tach on telemetry and otherwise stable Review of Systems Review of Systems: All systems reviewed & are unremarkable except as noted in HPI and below (HPI) Exam Narrative: General: Pt is alert awake and in NAD Lungs/Chest: Trachea central Clear BS B/L, No crackles or wheezing. Cardiac: RRR. Normal S1 S2. No murmurs Circulation: Both feet are warm Abdomen: Normal bowel sounds.. Soft. NT. ND. Extremities: No clubbing, cyanosis or edema. Warm, right groin site shows no hematoma swelling : Hooks in place Neurologic: Follows commands. Moves all 4 extremities PERRL Skin: No Rash Objective Data Vital Signs Vital Signs: Vital Signs - 24 hr 10/09/21 12:50 10/09/21 13:00 10/09/21 13:15 Temperature 36.7 C Pulse Rate 76 76 82 Respiratory Rate 14 13 19 Blood Pressure 126/80 133/70 116/64 Pulse Oximetry 100 98 98 10/09/21 13:30 10/09/21 13:45 10/09/21 14:00 Temperature Pulse Rate 81 79 67 Respiratory Rate 15 19 16 Blood Pressure 109/67 84/59 L 105/62 Pulse Oximetry 98 98 99 10/09/21 14:30 10/09/21 15:00 10/09/21 16:00 Temperature 36.7 C Pulse Rate 76 78 74 Respiratory Rate 18 17 17 Blood Pressure 106/58 L 111/68 110/61 Pulse Oximetry 100 99 100 10/09/21 17:00 10/09/21 18:00 10/09/21 20:00 Temperature Pulse Rate 80 95 88 Respiratory Rate 16 18 Blood Pressure 118/68 125/62 Pulse Oximetry 100 100 10/09/21 20:15 10/09/21 22:00 10/10/21 00:00 Temperature 36.7 C 36.8 C Pulse Rate 88 87 87 Respiratory Rate 23 H 23 H 20 Blood Pressure 126/67 141/87 H 137/79 Pulse Oximetry 100 98 100 10/10/21 02:00 10/10/21 04:00 10/10/21 05:21 Temperature 36.3 C L Pulse Rate 85 96 85 Respiratory Rate 21 H 21 H Blood Pressure 139/66 139/66 Pulse Oximetry 97 97 10/10/21 06:00 10/10/21 08:00 10/10/21 09:11 Temperature 36.6 C Pulse Rate 98 106 H 122 H Respiratory Rate 20 20 Blood Pressure 119/73 130/77 Pulse Oximetry 97 95 10/10/21 09:55 10/10/21 10:00 Temperature Pulse Rate 107 H Respiratory Rate 22 H Blood Pressure 127/66 Pulse Oximetry 99 96 Intake/Output Intake/Output: Intake & Output 10/07/21 10/08/21 10/09/21 10/10/21 23:59 23:59 23:59 23:59 Intake T
[2021-10-10 12:17] LABS: Cholesterol 162 mg/dL (0-200); HDL Direct 43 mg/dL; Triglycerides 145 mg/dL (<150)
[2021-10-10 12:28] LABS: LDL Cholesterol Direct 95 mg/dL
[2021-10-10 12:53] LABS: Glucose Point of Care 226 mg/dl (65-105)
[2021-10-10] MEDS: INSULIN ASPART (*BKC) 100 UNITS/ML SUB-Q ×2 (12:53→20:08)
--- NOTE | 2021-10-10 14:14 | PM.PNCARD ---
Progress Note: A&P Assessment and Plan (1) ST elevation myocardial infarction (STEMI): Code(s): I21.3 - ST elevation (STEMI) myocardial infarction of unspecified site Status: Acute Assessment and Plan: No prior known history of CAD. Inferior STEMI status post Xience 3.25 x 23 to mid RCA. Troponin significantly elevated at 54 post [place]. Brilinta will be stopped after this evening. Clopidogrel 300 mg p.o. x1 load tomorrow morning followed by 75 mg daily thereafter per recommendations from Dr Irizarry to reduce bleeding risk on Apixaban which has been restarted. Explained CAD management, medical therapy, need for hospitalization for least 48 hours, telemetry, pathophysiology and importance of medical therapy. We also discussed bleeding risk on triple therapy and intention to continue for 1 month then discontinue aspirin and continue clopidogrel and apixaban. Patient and his at bedside verbalized understanding and agreed with plan of care. 2D echocardiogram in a.m. to assess LV function/wall motion abnormalities, valve pathology and MR severity, pulmonary pressures in chamber size. Recommendations to follow. Stable and asymptomatic. Transfer to telemetry later today. (2) Paroxysmal atrial fibrillation: Code(s): I48.0 - Paroxysmal atrial fibrillation Status: Acute Assessment and Plan: Maintaining sinus rhythm. Continue Toprol XL and apixaban. Monitor for bleeding. (3) History of cardiomyopathy: Code(s): Z86.79 - Personal history of other diseases of the circulatory system Status: Acute Assessment and Plan: Reassess LV function with echocardiogram in a.m. post inferior STEMI. (4) Mixed hyperlipidemia due to type 2 diabetes mellitus: Code(s): E11.69 - Type 2 diabetes mellitus with other specified complication; E78.2 - Mixed hyperlipidemia Status: Acute Assessment and Plan: Goal LDL less than 70. Ninety-five at admission. Will discontinue simvastatin in favor of atorvastatin 80 mg at bedtime. (5) Mitral regurgitation: Code(s): I34.0 - Nonrheumatic mitral (valve) insufficiency Status: Acute Assessment and Plan: Recheck echocardiogram to assess severity of MR in light of recent AFib with RVR and inferior STEMI. (6) Hypertension: Code(s): I10 - Essential (primary) hypertension Status: Acute Assessment and Plan: Well controlled overall. Continue medical therapy. (7) Diabetes mellitus: Code(s): E11.9 - Type 2 diabetes mellitus without complications Status: Acute Assessment and Plan: Per protocol. Resume home metformin and glimepiride tomorrow if stable. Subjective Date/time seen: Date of service: 10/10/21 14:14 Follow-up for inferior STEMI, paroxysmal AFib with RVR Feels well. No chest pain, shortness of breath. No new issues overnight. Maintaining sinus rhythm on telemetry. No pain at right groin arterial access site. Review of Systems Review of Systems: All systems reviewed & are unremarkable except as noted in HPI and below Constitutional: Constitutional: Reports as per HPI, Reports no additional constitutional complaints, Denies chills, Denies fatigue, Denies fever(s), Denies headache(s) and Denies snoring Eyes: Eyes: Reports as per HPI, Denies eye discharge and Denies loss of vision ENT: Reports as per HPI, Denies dizziness, Denies headache(s), Denies nasal discharge and Denies sore throat Cardiovascular: Cardiovascular: Reports as per HPI, Denies chest pain, Denies syncope, Denies rapid heart rate, Denies leg edema, Reports dyspnea, Denies dyspnea on exertion, Denies orthopnea and Denies paroxysmal nocturnal dyspnea Respiratory: Respiratory: Reports as per HPI, Denies chest congestion, Denies cough, Denies dyspnea, Denies dyspnea on exertion, Denies snoring and Denies wheezing Gastrointestinal: Gastrointestinal: Reports as per HPI, Denies abdominal pain, Denies diarrhea, Denies nausea and Judah
[2021-10-10 17:45] LABS: Glucose Point of Care 152 mg/dl (65-105)
[2021-10-10 21:00] LABS: Glucose Point of Care 244 mg/dl (65-105)
[2021-10-11] VITALS (10 sets, daily range): BP systolic 108–129; BP diastolic 65–86; PULSE 87–97; RESP 14–22; TEMP 36.1–37; O2SAT 96–100
[2021-10-11 05:48] LABS: Alanine Aminotransferase 31 U/L (4-50); Albumin Level 3.9 g/dL (3.5-5.1); Alkaline Phosphatase 39 U/L (38-126); Anion Gap 5 mmol/L (8-16); Aspartate Amino Transferase 59 U/L (17-59); Bilirubin,Total 1.4 mg/dL (0.2-1.3); Blood Urea Nitrogen 18 mg/dL (9-20); Carbon Dioxide 25 mmol/L (22-30); Chloride 100 mmol/L (98-107); Estimated CRCL calculation 52 ml/min; Estimated Glomerular Filt Rate > 60; Glucose 174 mg/dL (65-110); Magnesium 1.7 mg/dL (1.6-2.3); Potassium 4.1 mmol/L (3.4-5.0); Sodium 130 mmol/L (137-145)
[2021-10-11 05:51] LABS: Hematocrit 34.2 % (42.0-52.0); Hemoglobin 11.7 g/dL (14.0-18.0); Mean Corpuscular HGB Conc 34.2 g/dl (32-36); Mean Corpuscular Hemoglobin 31.9 pg (26-34); Mean Corpuscular Volume 93.2 fl (80-100); Mean Platelet Volume 9.3 fl (7.4-10.4); Platelet Count Result 165 k/mm3 (150-375); Red Blood Count 3.67 M/mm3 (4.6-6.20); Red Cell Distribution Width 14.3 % (11.5-14.5); White Blood Count 8.6 K/mm3 (4.5-10.0)
--- NOTE | 2021-10-11 06:51 | PC.NURSE ---
This patient, Marcos Calderon, was received from ICU 6 on 10/11/21 at 0651. Patient/family oriented to unit policies and routines
--- NOTE | 2021-10-11 07:00 | ECG_ITS ---
Measurements Intervals [place] Rate: 104 P: 46 IN: 157 QRS: -15 QRSD: 84 T: -65 QT: 326 QTc: 431 Interpretive Statements SINUS TACHYCARDIA BORDERLINE R WAVE PROGRESSION, ANTERIOR LEADS INFERIOR INFARCT, PROBABLY RECENT BASELINE WANDER- I ABNORMAL ECG Electronically Signed On 10-11-2021 10:41:31 CORPORATE STRATEGIST by Davie Bruno D.O.
--- NOTE | 2021-10-11 09:00 | ECHO_ITS ---
Patient Info Name: Marcos Calderon Age: 71 years : 1950 Gender: Male Ht: 69 in Wt: 196 lbs BSA: 2.10 m2 HR: 78 bpm BP: 108 / 66 mmHg Technical Quality: Fair Exam Date: 10/11/2021 11:54 AM Exam Location: [facility] Exam Room: [facility] Patient Status: Inpatient Admit Date: 10/09/2021 Staff Ordering Physician: Conner Interiano MD Vice President [employer]: Sirisha Mata RDCS Attending Provider: Carlos Alberto Irizarry MD Exam Type: CA echo doppler color flow Study Info Indications - STEMI Complete two-dimensional, color flow and Doppler transthoracic echocardiogram is performed. Summary 1. Complete two-dimensional, color flow and Doppler transthoracic echocardiogram is performed. 2. Normal LV size, mild LVH, normal LV systolic function, ejection fraction 60-65%. Grade 1 diastolic dysfunction. Normal RV size and systolic function. Mild left atrial enlargement. Mild mitral annular calcification with mild thickening of mitral valve leaflets, mild MR. Aortic valve appears moderately calcified with mild stenosis by Doppler; maximum velocity 2 m/sec, mean gradient 11 mmHg, calculated aortic valve area 1.7 cm2. Trace TR, mild pulmonary hypertension, RVSP 42 mmHg. Trivial pericardial effusion. Left Ventricle Left ventricular chamber dimension is normal. Left ventricular systolic function is normal, estimated at 60-65%. There is mildly increased left ventricular wall thickness. The left ventricular diastolic function is grade I diastolic dysfunction. Right Ventricle Right ventricular chamber dimension is normal. Right ventricular systolic function is normal. Left Atria Left atrial chamber dimension is mildly enlarged. Right Atria Right atrial chamber dimension is normal. Aortic Valve There is moderate aortic valve calcification. Mitral Valve The mitral valve has thickened leaflets. There is mild mitral valve regurgitation. The mitral valve annulus is mildly calcified. Tricuspid Valve The tricuspid valve leaflets are normal. There is trace tricuspid valve regurgitation. Mild pulmonary hypertension, estimated pulmonary arterial systolic pressure is 42 mmHg. Pericardium/Pleural The pericardium appears normal. There is trivial pericardial effusion. Inferior Vena Cava Normal inferior vena cava with >50% collapse upon inspiration consistent with normal right atrial pressure, 10 mmHg. Left Ventricular Outflow Tract Name Value Normal LVOT 2D LVOT Diameter 2.0 cm LVOT Doppler LVOT Peak Gradient 4 mmHg LVOT Mean Gradient 3 mmHg LVOT VTI 20 cm LVOT VTI/AV VTI Ratio 0.5 LVOT Stroke Volume 63 ml LVOT CO 15.0 l/min LVOT CI 7.1 l/min/m2 Pulmonic Valve Name Value Normal PV Doppler
[2021-10-11 09:08] LABS: Glucose Point of Care 157 mg/dl (65-105)
[2021-10-11] MEDS: MAGNESIUM OXIDE 400 MG TABLET PO (09:32)
[2021-10-11] MEDS: LOSARTAN POTASSIUM 100 MG TABLET PO (09:32)
[2021-10-11] MEDS: hydroCHLOROthiazide 12.5 MG CAPSULE PO (09:32)
[2021-10-11] MEDS: METOPROLOL SUCCINATE EXT REL 100 MG TABCR PO (09:32)
[2021-10-11] MEDS: ASPIRIN 81 MG ENTERIC TABLET PO (09:33)
[2021-10-11] MEDS: CLOPIDOGREL BISULFATE 300 MG TABLET PO (09:33)
[2021-10-11] MEDS: ATORVASTATIN 40 MG TABLET 80 MG PO (09:33)
[2021-10-11] MEDS: APIXABAN 5 MG TABLET PO (09:34)
--- NOTE | 2021-10-11 09:55 | PM.PNCARD ---
Progress Note: A&P Assessment and Plan (1) ST elevation myocardial infarction (STEMI): Code(s): I21.3 - ST elevation (STEMI) myocardial infarction of unspecified site Status: Acute Assessment and Plan: No prior known history of CAD. Inferior STEMI status post Xience 3.25 x 23 to mid RCA. Troponin significantly elevated at 54 post MD. Brilinta will be stopped after this evening. Clopidogrel 300 mg p.o. x1 load tomorrow morning followed by 75 mg daily thereafter per recommendations from Dr Irizarry to reduce bleeding risk on Apixaban which has been restarted. Explained CAD management, medical therapy, need for hospitalization for least 48 hours, telemetry, pathophysiology and importance of medical therapy. We also discussed bleeding risk on triple therapy and intention to continue for 1 month then discontinue aspirin and continue clopidogrel and apixaban. Patient and his at bedside verbalized understanding and agreed with plan of care. 2D echocardiogram in a.m. to assess LV function/wall motion abnormalities, valve pathology and MR severity, pulmonary pressures in chamber size. Recommendations to follow. Stable and asymptomatic. Transfer to telemetry later today. (2) Paroxysmal atrial fibrillation: Code(s): I48.0 - Paroxysmal atrial fibrillation Status: Acute Assessment and Plan: Maintaining sinus rhythm. Continue Toprol XL and apixaban. Monitor for bleeding. (3) History of cardiomyopathy: Code(s): Z86.79 - Personal history of other diseases of the circulatory system Status: Acute Assessment and Plan: Reassess LV function with echocardiogram in a.m. post inferior STEMI. (4) Mixed hyperlipidemia due to type 2 diabetes mellitus: Code(s): E11.69 - Type 2 diabetes mellitus with other specified complication; E78.2 - Mixed hyperlipidemia Status: Acute Assessment and Plan: Goal LDL less than 70. Ninety-five at admission. Will discontinue simvastatin in favor of atorvastatin 80 mg at bedtime. (5) Mitral regurgitation: Code(s): I34.0 - Nonrheumatic mitral (valve) insufficiency Status: Acute Assessment and Plan: Recheck echocardiogram to assess severity of MR in light of recent AFib with RVR and inferior STEMI. (6) Hypertension: Code(s): I10 - Essential (primary) hypertension Status: Acute Assessment and Plan: Well controlled overall. Continue medical therapy. (7) Diabetes mellitus: Code(s): E11.9 - Type 2 diabetes mellitus without complications Status: Acute Assessment and Plan: Per protocol. Resume home metformin and glimepiride tomorrow if stable. Additional Plan - Continue aspirin, Brilinta for today. - start Eliquis tomorrow. - tomorrow butter to switch patient to Plavix. Keep him on aspirin, Plavix, Eliquis for a month and after that discontinue aspirin. - echocardiogram to assess mitral regurgitation. - aggressive risk factor modification for CAD Subjective Date/time seen: 10/11/21 09:55 Review of Systems Review of Systems: All systems reviewed & are unremarkable except as noted in HPI and below Constitutional: Constitutional: Reports as per HPI, Reports no additional constitutional complaints, Denies chills, Denies fatigue, Denies fever(s), Denies headache(s) and Denies snoring Eyes: Eyes: Reports as per HPI, Denies eye discharge and Denies loss of vision ENT: Reports as per HPI, Denies dizziness, Denies headache(s), Denies nasal discharge and Denies sore throat Cardiovascular: Cardiovascular: Reports as per HPI, Denies chest pain, Denies syncope, Denies rapid heart rate, Denies leg edema, Denies dyspnea, Denies dyspnea on exertion, Denies orthopnea and Denies paroxysmal nocturnal dyspnea Respiratory: Respiratory: Reports as per HPI, Denies chest congestion, Denies cough, Denies dyspnea, Denies dyspnea on exertion, Denies snoring and Denies wheezing Gastrointestinal: Gastrointestinal: R
--- NOTE | 2021-10-11 10:59 | PM.DS ---
DS: Admitting Diagnosis Discharge Date 10/11/21 Admitting Diagnosis Chest pain DS: Discharge Diagnosis Discharge Diagnosis (1) ST elevation myocardial infarction (STEMI): Code(s): I21.3 - ST elevation (STEMI) myocardial infarction of unspecified site Status: Acute Assessment and Plan: No prior known history of CAD. Inferior STEMI status post Xience 3.25 x 23 to mid RCA. Troponin significantly elevated at 54 post MT. Brilinta will be stopped after this evening. Clopidogrel 300 mg p.o. x1 load this morning followed by 75 mg daily thereafter per recommendations from Dr Irizarry to reduce bleeding risk on Apixaban which has been restarted. Plan to continue with triple therapy for 1 month then discontinue ASA, continue Plavix, apixaban. Discussed importance of medication adherence, particularly antiplatelet agents. Reviewed plan for triple therapy for one month with discontinuation of ASA thereafter. Discussed heart healthy diet, importance of aerobic exercise. Patient and verbalize understanding of all information discussed. Denies any chest pain this morning. Telemetry showing sinus rhythm, no ectopy. Labs are stable. Echo pending Stable and asymptomatic. OK for discharge after echocardiogram reviewed. (2) Paroxysmal atrial fibrillation: Code(s): I48.0 - Paroxysmal atrial fibrillation Status: Acute Assessment and Plan: Maintaining sinus rhythm. Continue Toprol XL and apixaban. Monitor for bleeding. (3) History of cardiomyopathy: Code(s): Z86.79 - Personal history of other diseases of the circulatory system Status: Acute Assessment and Plan: Reassess LV function with echocardiogram. Results pending. (4) Mixed hyperlipidemia due to type 2 diabetes mellitus: Code(s): E11.69 - Type 2 diabetes mellitus with other specified complication; E78.2 - Mixed hyperlipidemia Status: Acute Assessment and Plan: Goal LDL less than 70. Ninety-five at admission. On high intensity statin. (5) Mitral regurgitation: Code(s): I34.0 - Nonrheumatic mitral (valve) insufficiency Status: Acute Assessment and Plan: Recheck echocardiogram to assess severity of MR in light of recent AFib with RVR and inferior STEMI. (6) Hypertension: Code(s): I10 - Essential (primary) hypertension Status: Acute Assessment and Plan: Well controlled overall. Continue medical therapy. (7) Diabetes mellitus: Code(s): E11.9 - Type 2 diabetes mellitus without complications Status: Acute Assessment and Plan: Per protocol. Resume home metformin and glimepiride tomorrow if stable. DS: Summary Hospital Course Hospital Course: Presented to the emergency department with chest pain that had been ongoing for about 3-4 hours. He was unable to make it to the hospital sooner than that because he was hunting when his chest pain began. His EKG in the emergency department showed AFib with RVR with ST elevation in the inferior leads, ST depression in leads 1 and aVL. He was taken to the nursery laborer emergently for coronary angiogram. He was found to have a 90% lesion in the mid RCA. This was stented with a Xience 3.25 x 23 PITER. No complications during his hospitalization. He is asymptomatic this morning and is stable for discharge home today. Time Spent with Patient Time attestation: Total time spent providing and/or coordinating discharge services: Time spent: Greater than 30 minutes Exam Const: General: comfortable and no acute distress HENMT: Head: normal to inspection and normocephalic Eyes: General: appearance normal, both eyes and all related structures Neck: Neck: no JVD Resp: Effort & Inspection: normal respiratory effort Auscultation: clear to auscultation bilaterally Cardio: Rate: regular rate Rhythm: regular rhythm Heart sounds: no murmurs GI: GI Palp: Yes Soft to palpation Auscultation: normal bowel sounds Skin:
[2021-10-11] MEDS: INSULIN ASPART (*BKC) 100 UNITS/ML SUB-Q (13:25)
[2021-10-11 13:42] LABS: Glucose Point of Care 266 mg/dl (65-105)
== END 2021-10-11 16:10 | disposition home or self-care (01) | DRG 247 ==
LOC: ANHED 10:47 → ANHICU 16:11 → ANHED 10-10 16:42 → ANHSURGERY 10-10 16:42 → ANHICU 10-10 16:43 → ANHIMU 10-11 06:00
PROVIDERS: Internal Medicine; Internal Medicine Cardiovascular Disease; Admitting Provider Internal Medicine; Emergency Provider Emergency Medicine; PCP Family Medicine Adolescent Medicine; Visit Provider Internal Medicine Cardiovascular Disease
PROC: 4A023N7 Measurement of Cardiac Sampling and Pressure, Left Heart, Percutaneous Approach (ICD-10-PCS; CPT 93452; principal; 2021-10-09 11:10)
PROC: 027034Z Dilation of Coronary Artery, One Artery with Drug-eluting Intraluminal Device, Percutaneous Approach (ICD-10-PCS; 2021-10-09 11:10)
PROC: 027034Z Dilation of Coronary Artery, One Artery with Drug-eluting Intraluminal Device, Percutaneous Approach (ICD-10-PCS; 2021-10-09 11:10)
DX: I21.11 ST elevation (STEMI) myocardial infarction involving right coronary artery (principal); I48.20 Chronic atrial fibrillation, unspecified; I50.32 Chronic diastolic (congestive) heart failure; I34.0 Nonrheumatic mitral (valve) insufficiency; I11.0 Hypertensive heart disease with heart failure; E11.69 Type 2 diabetes mellitus with other specified complication; E78.2 Mixed hyperlipidemia; Z86.79 Personal history of other diseases of the circulatory system; Z79.01 Long term (current) use of anticoagulants
CPT/HCPCS: 36415; 71045; 80053; 80061; 82948; 83690; 83735; 84484; 85025; 85027; 85610; 85730; 86850; 86900; 86901; 93005; 93306; 93458; 96374; 99291; A9270; C1725; C1760; C1769; C1874; C1887; C1894; C9606; G0269; J0461; J0583; J1644; J1815; J2250; J2405; J3010; J3475; J7030; J7040

== ENCOUNTER 2022-06-08 11:30 | Outpatient (RCR) | payer MEDICARE, SELFPAY | END 2022-06-08 23:59 | disposition home or self-care (01) | LOC: ANHAUDIO 11:30 | PROVIDERS: PCP Family Medicine Adolescent Medicine; Visit Provider Family Medicine Adolescent Medicine | DX: Z46.1 Encounter for fitting and adjustment of hearing aid (principal) | CPT/HCPCS: 99199 ==

== ENCOUNTER 2022-10-14 13:52 | Outpatient (RCR) | payer MEDICARE, SELFPAY | END 2022-10-14 23:59 | disposition home or self-care (01) | LOC: ANHAUDIO 13:52 | PROVIDERS: PCP Family Medicine Adolescent Medicine; Visit Provider Family Medicine Adolescent Medicine | DX: Z46.1 Encounter for fitting and adjustment of hearing aid (principal) | CPT/HCPCS: 99199; V5014 ==

== ENCOUNTER 2023-08-08 08:42 | Observation (INO) | payer MEDICARE, SELFPAY ==
[2023-08-08] VITALS (13 sets, daily range): BP systolic 107–173; BP diastolic 47–83; PULSE 66–122; RESP 20–42; TEMP 36.2–38.3; O2SAT 94–100; BMI 28.7
--- NOTE | ~2023-08-08 | MR_ITS ---
EXAMINATION: MR brain/brain stem wo/w con DATE: 08/08/2023 17:50 INDICATION: Altered mental status. TECHNIQUE: Magnetic resonance imaging (MRI) of the brain and brainstem was performed without and with 17 mL MultiHance intravenous contrast. COMPARISON: Brain MRI 06/29/2012, head CT 08/08/2023 FINDINGS: There is no intracranial hemorrhage, acute infarction, or abnormal intracranial mass lesion . The ventricles are normal in size. The orbits are normal. There is mild mucosal thickening in the e thmoid sinuses. The mastoid air cells are normal. IMPRESSION: 1. Normal brain. Reviewed, dictated and finalized at location E. IMPRESSION: 1. Normal brain.
--- NOTE | ~2023-08-08 | CT_ITS ---
EXAMINATION: CTA BRAIN/CAROTID DATE: 08/08/2023 17:30 INDICATION: Recurrent atrial fibrillation. Transient altered mental status. TECHNIQUE: Computed tomographic angiography (CTA) of the head and neck was performed with 100 mL Omni paque-350 intravenous contrast. Multiplanar reconstructions and maximum intensity projection 3D-recon structions of the carotid arteries and of the intracranial arteries were created by the technologist on a separate workstation. Automated exposure control and iterative reconstruction technique were emp loyed.The dose-length product was 1251.51 mGy-cm. COMPARISON: Head CT dated 08/08/2023 FINDINGS: Carotid arteries: Visualized aortic arch there is normal in caliber with small amount of nonhemodynamically significant atherosclerotic plaque and no dissection. There is small amount of atherosclerotic plaque with 0% st enosis of the right carotid bulb relative to normal distal artery lumen diameter (NASCET criteria). T here is 10% stenosis of the left carotid bulb relative to normal distal artery lumen diameter. Bilate ral vertebral arteries are codominant with small amount of nonhemodynamically significant plaque at t he origin of the left vertebral artery. Mild discoid atelectasis in the superior segments of the bila teral lower lobes. Remainder of the visualized lungs are clear. Cervical soft tissues and superior me diastinum are unremarkable. Moderate to severe cervical spondylosis. Intracranial arteries Atherosclerotic plaque without hemodynamic significant stenosis at the bilateral carotid siphons. Georgie tebral arteries are codominant. There is no hemodynamically significant stenosis in the vertebral and basilar arteries. There are no aneurysms identified. Both A1 and P1 segments are patent. Cerebral arterial arborization appears symmetric. No abnormally enhancing brain lesions. IMPRESSION: 1. Small amount of atherosclerotic plaque with 0% stenosis of the right carotid bulb relative to norm al distal artery lumen diameter (NASCET criteria). 2. 10% stenosis of the left carotid bulb relative to normal distal artery lumen diameter. 3. Small amount of atherosclerotic plaque without hemodynamic significant stenosis at the bilateral c arotid siphons. Otherwise unremarkable cerebral CT angiogram. Reviewed, dictated and finalized at location A. IMPRESSION: 1. Small amount of atherosclerotic plaque with 0% stenosis of the right carotid bulb relative to normal distal artery lumen diameter (NASCET criteria). 2. 10% stenosis of the left carotid bulb relative to normal distal artery lumen diameter. 3. Small amount of atherosclerotic plaque without hemodynamic significant steno sis at the bilateral carotid siphons. Otherwise unremarkable cerebral CT angiog luis enrique.
--- NOTE | ~2023-08-08 | CT_ITS ---
Non-contrast Head CT History: Confusion, altered mental status Technique: Axial non-contrast imaging of the brain was performed. Dose reduction technique was used on this scan by utilizing automated exposure control and iterative reconstruction technique. The dose -length product (DLP) was 605.33 mGy-cm. Findings: There is no evidence of intracranial hemorrhage, mass lesion, or acute infarct. Brain par enchyma appears normal. The ventricles and subarachnoid spaces are normal in size. The calvarium ap pears normal. The visualized paranasal sinuses and mastoid air cells are clear. Impression: No significant abnormality seen. Reviewed, dictated and finalized at location . Impression: No significant abnormality seen.
--- NOTE | ~2023-08-08 | XR_ITS ---
Portable chest x-ray Comparison: 10/09/2021 Clinical History: Confusion Findings: Lungs are clear, without focal consolidation or pleural effusion. Cardiomediastinal silho uette is stable. Bones and soft tissues are unremarkable. Impression: Clear lungs. Reviewed, dictated and finalized at location . Impression: Clear lungs.
--- NOTE | 2023-08-08 09:02 | ECG_ITS ---
Measurements Intervals [place] Rate: 113 P: 60 NV: 181 QRS: -26 QRSD: 87 T: 28 QT: 310 QTc: 426 Interpretive Statements SINUS TACHYCARDIA INFERIOR MYOCARDIAL INFARCTION , PROBABLY OLD [40+ ms Q WAVE AND/OR ST/T ABNORMALITY IN II/aVF] COMPARED TO ECG 10/11/2021 10:23:59 NO SIGNIFICANT CHANGES Electronically Signed On 08-08-2023 12:40:42 CDT by Jagruti Angeles M.D.
[2023-08-08 09:30] LABS: Hematocrit 34.6 % (42.0-52.0); Mean Corpuscular HGB Conc 34.7 g/dl (32-36); Mean Corpuscular Volume 95.1 fl (80-100); Mean Platelet Volume 9.2 fl (7.4-10.4); Platelet Count Result 132 k/mm3 (150-375); Red Blood Count 3.64 M/mm3 (4.6-6.20); Red Cell Distribution Width 13.2 % (11.5-14.5); White Blood Count 6.9 K/mm3 (4.5-10.0)
[2023-08-08 09:40] LABS: Anion Gap 11 mmol/L (8-16); Blood Urea Nitrogen 26 mg/dL (9-20); Calcium 8.8 mg/dL (8.4-10.2); Carbon Dioxide 22 mmol/L (22-30); Chloride 102 mmol/L (98-107); Estimated CRCL calculation 51 ml/min; Estimated Glomerular Filt Rate 60; Glucose 174 mg/dL (65-110); Potassium 3.8 mmol/L (3.4-5.0); Sodium 135 mmol/L (137-145)
[2023-08-08] MEDS: LACTATED RINGERS 1,000 ML 999 ML IV CONT (09:43)
[2023-08-08] MEDS: METOPROLOL SUCCINATE EXT REL 100 MG TABCR PO (09:43)
[2023-08-08 09:51] LABS: Band Neutrophils Percent 15 % (0-6); Lymphocytes Absolute Manual 0.27 K/mm3 (1.1-4.5); Monocytes Absolute Manual 0.27 K/mm3 (0.1-0.90); Monocytes Percent Manual 4 % (3-9); Neutrophils Absolute Manual 6.34 K/mm3 (1.3-6.7); Neutrophils Percent Manual 77 % (46-73); Platelet Estimate Adequate (Adequate); Schistocytes None Seen (NORMAL); Total Cells Counted 100
[2023-08-08 09:52] LABS: Anisocytosis 1+ (NORMAL); Ovalocytes 1+ (NORMAL)
[2023-08-08 09:58] LABS: Troponin I < 0.012 ng/mL (0.000-0.034)
[2023-08-08 10:38] LABS: Appearance Urine Clear (Clear); Bacteria Urine None Seen /hpf; Bilirubin Urine Negative (Negative); Color Urine Yellow (Yellow); Glucose Urine UA Negative (Negative); Ketones Urine Trace mg/dL (Negative); Leukocyte Esterase Ur Negative LEU/UL (Negative); Nitrate Urine Negative (Negative); Non Pathogenic Casts 0-2; Protein Urine Negative (Negative); Specific Grav Ur 1.022 (1.001-1.035); Squamous Epithelial Cell Urine None seen /hpf (Few); Urobilinogen Urine 0.2 mg/dL (<2.0); WBC Urine 0-5 /hpf
[2023-08-08 10:40] LABS: Add Urine Microscopic? YES
--- NOTE | 2023-08-08 15:58 | ED.GENADULT ---
HPI - General Adult General Chief complaint: Unspecified Stated complaint: Flu shot and not feeling good Time Seen by Provider: 08/08/23 08:50 History of Present Illness HPI narrative: Patient got the flu shot yesterday and has not felt well since, this morning was extremely confused, and had trouble remembering how to put his pants on, forgot that he had a dog, and overall was acting quite unlike himself. He denies any chest pain or shortness of breath, no nausea or vomiting, but overall does not feel good Related Data Home Medications Medication Instructions Recorded Confirmed apixaban 5 mg tablet (Eliquis) 5 mg PO BID 04/20/20 08/08/23 losartan 100 mg tablet 100 mg PO DAILY 04/20/20 08/08/23 magnesium 200 mg tablet 400 mg PO BID 04/20/20 08/08/23 multivitamin (Daily Multi-Vitamin 1 tablet PO DAILY 04/20/20 08/08/23 tablet) hydrochlorothiazide 12.5 mg tablet 12.5 mg PO DAILY 02/09/21 08/08/23 aspirin 81 mg tablet,delayed 81 mg PO DAILY 08/08/23 08/08/23 release atorvastatin 40 mg tablet 80 mg PO HS 08/08/23 08/08/23 metformin 500 mg tablet,extended 500 mg PO BID 08/08/23 08/08/23 release 24 hr Allergies Allergy/AdvReac Type Severity Reaction Status Date / Time No Known Allergies Allergy Verified 08/08/23 09:06 Review of Systems Review of Systems: All systems reviewed & are unremarkable except as noted in HPI and below PMFSH Past Medical History Medical History Abnormal colonoscopy 02/24 Repeat 03/01 Adenomatous colon polyp Congestive heart failure (CHF) EF 60% Diabetes mellitus History of cardiomyopathy Hypertension Mitral regurgitation Paroxysmal atrial fibrillation ST elevation myocardial infarction (STEMI) (~10/2021) Surgical History Surgical History H/O cardiac radiofrequency ablation History of heart artery stent (~10/2021) History of lung surgery Hx of colonoscopy Family History Family History Unknown No problems noted. Sibling Diabetes mellitus Acute myocardial infarction Depression Heart disease Hypertension Malignant neoplasm of prostate No cardiac disease Father Heart disease Diabetes mellitus Hypertension No cardiac disease Other Colon polyp Social History Social History Social History: , lives with Smoking status: Never smoker Second hand tobacco smoke exposure: No Alcohol intake: current Drinks per week: 1 Alcohol use details: 1 or 2 x month Substance use: never Substance use type: does not use Lack of Transportation: No Lack of Food: Never True Current Housing: I Have Housing Concerned About Future Housing: No Difficulty Paying Gas/Electric Bills: No Difficulty Paying for Meds: No Currently Unemployed: No Education: High School Diploma/GED Difficulty w/ Childcare or Family Care: No Living arrangements: with family Occupation/Education: retired Gender identity (if verbalized by the patient): Male Sexual Orientation (if Verbalized by the Patient): Straight or Heterosexual Spiritual care concerns: No Agree to blood products: Yes Exam Narrative: EXAMINATION OF ORGAN SYSTEMS/BODY AREAS: Constitutional: Vital signs per nursing GENERAL: Appears tired HEAD: Normal with no signs of head trauma. EYES: EOMI, conjunctiva normal ENT: Hearing grossly intact LUNGS: Nonlabored breathing. HEART: Tachycardic ABD: [Soft], [nontender to palpation] EXT: Normal range of motion SKIN: [No rashes or lesions.] NEURO: [Alert and oriented x 3. No gross focal sensory or strength deficits.] PSYCH: Normal affect Course Vital Signs Vital signs: Vital Signs Temperature 98.6 F 08/08/23 08:46 Pulse Rate 122 H 08/08/23 08:46 Respiratory Rate 42 H 08/08/23 08:46
--- NOTE | 2023-08-08 16:15 | PC.NURSE ---
Kristal Duff notified of temp 101 when arriving to floor.
--- NOTE | 2023-08-08 16:21 | PM.IMHP ---
H&P: HPI History of Present Illness Date/Time: 08/08/23 16:21 Chief Complaint: Altered Mental Status Narrative: 72 y/o M presents here with transient AMS this morning with PMH of A-Fib (success ablation - no reoccurence for the past few years), hypertension, high cholesterol, and diabetes. History obtained from patient and . Patient woke up this morning and attempted to do his daily routine. found patient around 8:00 a.m. deviating from his normal routine. He was attempting to put on pants and was too confused to complete task. described it as delirious. No changes in speech, no focal weakness or numbness that patient or observed or can endorse. Patient received COVID and flu vaccination yesterday. Patient felt a little unwell yesterday evening. Denied shortness of breath, cough, nausea or vomiting. was able to capture a telemetry reading while at home. Per ED provider who reviewed telemetry, tracing was consistent with atrial fibrillation which occurred around 832 this morning coinciding with confusion. After arrival to the ED, tachycardia and confusion resolved. Patient now A&Ox4. Review of Systems Review of Systems: Patient currently denies dizziness, headache, focal weakness, focal numbness, dysarthria, word-finding difficulties. No shortness of breath, palpitations, diaphoresis, nausea, vomiting, diarrhea or chest pain. All systems reviewed & are unremarkable except as noted in HPI and below PMFSH Past Medical History Medical History Abnormal colonoscopy 02/24 Repeat 03/01 Adenomatous colon polyp Congestive heart failure (CHF) EF 60% Diabetes mellitus History of cardiomyopathy Hypertension Mitral regurgitation Paroxysmal atrial fibrillation ST elevation myocardial infarction (STEMI) (~10/2021) Surgical History Surgical History H/O cardiac radiofrequency ablation History of heart artery stent (~10/2021) History of lung surgery Hx of colonoscopy Family History Family History Unknown No problems noted. Sibling Diabetes mellitus Acute myocardial infarction Depression Heart disease Hypertension Malignant neoplasm of prostate No cardiac disease Father Heart disease Diabetes mellitus Hypertension No cardiac disease Other Colon polyp Social History Social History (Updated 08/09/23 @ 00:24 by Kristal Duff APRN) Social History: Currently lives at home with his . Surrogate decision maker Lisette Calderon, . Full code. Smoking status: Never smoker Second hand tobacco smoke exposure: No Alcohol intake: current Drinks per week: 1 Alcohol use details: 1 or 2 x month Substance use: never Substance use type: does not use Lack of Transportation: No Lack of Food: Never True Current Housing: I Have Housing Concerned About Future Housing: No Difficulty Paying Gas/Electric Bills: No Difficulty Paying for Meds: No Currently Unemployed: No Education: High School Diploma/GED Difficulty w/ Childcare or Family Care: No Living arrangements: with family Occupation/Education: retired Gender identity (if verbalized by the patient): Male Sexual Orientation (if Verbalized by the Patient): Straight or Heterosexual Spiritual care concerns: No Agree to blood products: Yes Meds Home Medications and Allergies Home Medications Medication Instructions Recorded Confirmed Type apixaban 5 mg tablet (Eliquis) 5 mg PO BID 04/20/20 08/08/23 History losartan 100 mg tablet 100 mg PO DAILY 04/20/20 08/08/23 History magnesium 200 mg tablet 400 mg PO BID 04/20/20 08/08/23 History multivitamin (Daily Multi-Vitamin 1 tablet PO DAILY 04/20/20 08/08/23 History tablet) hydrochlorothiazide 12.5 mg tablet 12.5 mg PO DAILY 02/09/21 08/08/23 History met
[2023-08-08 17:06] LABS: Glucose Point of Care 91 mg/dl (65-105)
[2023-08-08] MEDS: ACETAMINOPHEN 325 MG TABLET 650 MG PO (17:08)
[2023-08-08 17:42] LABS: Influenza A QL RT-PCR Negative (Negative); Influenza B QL RT-PCR Negative (Negative); RSV RNA, RT-PCR Negative (Negative); SARS-CoV-2 RNA PCR Negative (Negative)
[2023-08-08 17:44] LABS: Troponin I < 0.012 ng/mL (0.000-0.034)
[2023-08-08] MEDS: MAGNESIUM OXIDE 400 MG TABLET PO (18:07)
[2023-08-08] MEDS: APIXABAN 5 MG TABLET PO (18:07)
[2023-08-08] MEDS: metFORMIN HCL XR 500 MG TAB.SR.24H PO (18:09)
--- NOTE | 2023-08-08 18:33 | ADMGEN ---
This patient, Marcos Calderon, was admitted to Medical Room 244-. Patient/family oriented to hospital policies and general routines including ID bracelet, bed and alarms, visiting hours, pain management, procedures, bathroom and other care routines, personal items, smoking policy, room service/diet, and visiting hours. Information on how to activate the Rapid Response Team has been discussed. Patient/Family are encouraged to report perceived risks to care and to ask questions if they do not understand what they are told or what they should do.
[2023-08-08] MEDS: ATORVASTATIN 40 MG TABLET 80 MG PO (20:27)
[2023-08-08 22:14] LABS: Glucose Point of Care 133 mg/dl (65-105)
[2023-08-09] VITALS (9 sets, daily range): BP systolic 108–142; BP diastolic 48–61; PULSE 72–85; RESP 18–20; TEMP 36.5–37.3; O2SAT 93–98
--- NOTE | 2023-08-09 | ECHO_ITS ---
Patient Info Name: Marcos Calderon Age: 72 years : 1950 Gender: Male Ht: 69 in Wt: 169 lbs BSA: 1.94 m2 HR: 48 bpm BP: 108 / 48 mmHg Heart Rhythm: Sinus Rhythm Technical Quality: Good Exam Date: 08/09/2023 9:55 AM Exam Location: [facility] Patient Status: Outpatient Admit Date: 08/08/2023 Staff Ordering Physician: Kristal Duff APRN Spray Painting Machine Operator: Merlene Pedroza RDCS Attending Provider: Romero Carpenter MD Referring Physician: Omega BRICEÑO; Exam Type: CA echo doppler w bubble study Study Info Indications - recurrent A-fib, AMS Complete two-dimensional, color flow and Doppler transthoracic echocardiogram is performed with agitated saline. Contrast/Agitated Saline Contrast/Ag. Saline: Agitated Saline Amount: --- ml Summary 1. Normal left ventricular size with mild concentric hypertrophy. Good systolic function of all segments with ejection fraction of 64%. Grade 2 diastolic dysfunction is present. 2. Left atrial chamber dimension is moderately enlarged. 3. There is mild aortic valve stenosis with a peak velocity of 223 cm/s, mean gradient of 15 mmHg, and aortic valve area of 1.4 cm2. 4. No pulmonary hypertension, estimated pulmonary arterial systolic pressure is 17 mmHg. 5. There is mild pulmonic regurgitation. 6. No evidence of intracardiac shunting during normal respiration and Valsalva maneuver by bubble study. Color flow Doppler did not suggest any PFO either. 7. Normal sinus rhythm. Left Ventricle Left ventricular chamber dimension is normal. Left ventricular systolic function is normal, estimated at 60-65%. There is mildly increased left ventricular wall thickness. Left ventricular septal wall motion is normal. The left ventricular diastolic function is grade II diastolic dysfunction. Right Ventricle Right ventricular chamber dimension is normal. Right ventricular systolic function is normal. Left Atria Left atrial chamber dimension is moderately enlarged. Right Atria Right atrial chamber dimension is normal. Atrial Septum Intact interatrial septum visualized by agitated saline imaging. Aortic Valve The aortic valve is trileaflet. There is no aortic valve sclerosis. There is mild aortic valve stenosis with a peak velocity of 223 cm/s, mean gradient of 15 mmHg, and aortic valve area of 1.4 cm2. There is no aortic valve regurgitation. There is moderate aortic valve calcification. Pulmonic Valve The pulmonic valve is normal. There is no pulmonic valve stenosis. There is mild pulmonic regurgitation. Mitral Valve The mitral valve has normal leaflets. There is no mitral valve stenosis. There is trace mitral valve regurgitation. Tricuspid Valve The tricuspid valve leaflets are normal. There is no significant tricuspid valve stenosis. There is trace tricuspid valve regurgitation. No pulmonary hypertension, estimated pulmonary arterial systolic pressure is 17 mmHg. Pericardium/Pleural The pericardium appears normal. There is no pericardial effusion. Inferior Vena Cava Normal inferior vena cava with >50% collapse upon inspiration consistent with Empty right atrial pressure, 10 mmHg. Aorta The aortic root size at the sinus of Valsalva is normal. The prox ascending aorta size is normal. Left Ventricular Outflow Tract Name Value Normal LVOT 2D
[2023-08-09 05:51] LABS: Basophils Percent Auto 0.5 % (0.2-1.2); Eosinophils Percent Auto 0.3 % (0-4.4); Hematocrit 31.8 % (42.0-52.0); Hemoglobin 10.8 g/dL (14.0-18.0); Immature Granulocyte Absolute 0.01 K/mm3 (0.00-0.031); Immature Granulocyte Percent A 0.3 % (0-0.5); Lymphocytes Absolute Auto 0.56 K/mm3 (0.9-3.2); Lymphocytes Percent Auto 14.8 % (18.3-44.2); Mean Corpuscular Hemoglobin 32.7 pg (26-34); Mean Corpuscular Volume 96.4 fl (80-100); Mean Platelet Volume 9.7 fl (7.4-10.4); Monocytes Absolute Auto 0.4 K/mm3 (0.1-0.6); Monocytes Percent Auto 11.6 % (2.6-8.5); Neutrophils Absolute Auto 2.8 K/mm3 (1.3-6.7); Neutrophils Percent Auto 72.5 % (45.5-73.1); Platelet Count Result 119 k/mm3 (150-375); Red Cell Distribution Width 13.2 % (11.5-14.5); White Blood Count 3.8 K/mm3 (4.5-10.0)
[2023-08-09 05:56] LABS: Alanine Aminotransferase 28 U/L (6-50); Albumin Level 3.9 g/dL (3.5-5.1); Alkaline Phosphatase 25 U/L (38-126); Anion Gap 8 mmol/L (8-16); Aspartate Amino Transferase 39 U/L (17-59); Bilirubin,Total 1.9 mg/dL (0.2-1.3); Blood Urea Nitrogen 26 mg/dL (9-20); Calcium 8.4 mg/dL (8.4-10.2); Carbon Dioxide 24 mmol/L (22-30); Chloride 103 mmol/L (98-107); Estimated CRCL calculation 56 ml/min; Estimated Glomerular Filt Rate > 60; Glucose 109 mg/dL (65-110); Potassium 3.9 mmol/L (3.4-5.0); Sodium 135 mmol/L (137-145)
--- NOTE | 2023-08-09 07:42 | P.PNIM_ITS ---
Progress Note: A&P Assessment and Plan (1) Brain TIA: Code(s): G45.9 - Transient cerebral ischemic attack, unspecified Status: Acute Assessment and Plan: * Head CT:? No significant abnormality seen * Head CTA 1. Small amount of atherosclerotic plaque with 0% stenosis of the right carotid bulb relative to normal distal artery lumen diameter (NASCET criteria). 2. 10% stenosis of the left carotid bulb relative to normal distal artery lumen diameter. 3. Small amount of atherosclerotic plaque without hemodynamic significant stenosis at the bilateral carotid siphons. Otherwise unremarkable cerebral CT angiogram. * MRI-Normal brain * Consult to Neurology - Jax STEIN * Brain MRI:? Normal brain, no infarct. * Neurological checks Q2H * Currently on daily aspirin, 81 mg * Cardiac echo with bubble study pending * NIH 0 * THS normal * Lipid panel from 01/2030-Triglycerides 100, Total cholesterol 98, LDL 95, HDL 36 (2) Atrial fibrillation: Code(s): I48.91 - Unspecified atrial fibrillation Status: Acute Assessment and Plan: * Given metoprolol 100 mg p.o. * Initial EKG SINUS TACHYCARDIA INFERIOR MYOCARDIAL INFARCTION , PROBABLY OLD [40+ ms Q WAVE AND/OR ST/T ABNORMALITY IN II/aVF] COMPARED TO ECG 10/11/2021 10:23:59 NO SIGNIFICANT CHANGES * LR 1L in the ED with improvement of heart rate * Troponin negative x2 * Cardiac monitoring * Continue Eliquis and metoprolol * Trend CBC and CMP, add TSH with reflex * Family request cardiology consult. A-fib seems to have been an isolated incident and is now in NRS but will consult per request. (3) Fever: Code(s): R50.9 - Fever, unspecified Status: Acute Assessment and Plan: * Patient developed fever (101F) after arrival to inpatient room - given acetaminophen, now resolved * Viral PCR:? Negative for COVID, flu, RSV * No white count * UA unremarkable * CXR: Clear lungs, cardiomediastinal silhouette is stable. * Tylenol p.r.n. for pain or fever (4) Diabetes type 2, controlled: Code(s): E11.9 - Type 2 diabetes mellitus without complications Status: Acute Assessment and Plan: * Hypoglycemia protocol * POC blood glucose AC/HS * correct regimen ordered - low dose TID WM and HS * Continue home medication:? Metformin on hold, continue glimepiride * A1C done in January of this year, 6.2 and unchanged from prior (5) Anemia: Code(s): D64.9 - Anemia, unspecified Status: Acute Assessment and Plan: Chronic anemia, range of 11-13. * Hgb on admission was 12.0, repeated on 08/09 is 10.8 * anemia labs ordered * on asa and Eliquis Plan Feeding:Heart healthy Analgesia: Thromboembolic prophylaxis: SCD, Eliquis Ulcer prophylaxis: N/A Glycemic control: SSI + glimepiride Bowel regimen: n/a Lines: PIV Antibiotics: n/a Subjective Date/time seen: 08/09/23 07:42 Interval history: HPI obtained from chart, 72 y/o M presents here with transient AMS this morning with PMH of A-Fib (success ablation - no reoccurence for the past few years), hypertension, high cholesterol, and diabetes. History obtained from patient and .? Patient woke up this morning and attempted to do his daily routine.? found patient around 8:00 a.m. deviating from his normal routine.? He was attempting to put on pants and was too confused to complete task.? described it as delirious.? No changes in speech, no focal weakness or numbness that patient or observed or can endorse.? Patient received
--- NOTE | 2023-08-09 07:42 | PM.IMPN ---
Progress Note: A&P Assessment and Plan (1) Brain TIA: Code(s): G45.9 - Transient cerebral ischemic attack, unspecified Status: Acute Assessment and Plan: Head CT:? No significant abnormality seen Head CTA 1. Small amount of atherosclerotic plaque with 0% stenosis of the right carotid bulb relative to normal distal artery lumen diameter (NASCET criteria). 2. 10% stenosis of the left carotid bulb relative to normal distal artery lumen diameter. 3. Small amount of atherosclerotic plaque without hemodynamic significant stenosis at the bilateral carotid siphons. Otherwise unremarkable cerebral CT angiogram. MRI-Normal brain Consult to Neurology - Jax STEIN Brain MRI:? Normal brain, no infarct. Neurological checks Q2H Currently on daily aspirin, 81 mg Cardiac echo with bubble study pending NIH 0 S normal Lipid panel from 01/2030-Triglycerides 100, Total cholesterol 98, LDL 95, HDL 36 (2) Atrial fibrillation: Code(s): I48.91 - Unspecified atrial fibrillation Status: Acute Assessment and Plan: Given metoprolol 100 mg p.o. Initial EKG SINUS TACHYCARDIA INFERIOR MYOCARDIAL INFARCTION , PROBABLY OLD [40+ ms Q WAVE AND/OR ST/T ABNORMALITY IN II/aVF] COMPARED TO ECG 10/11/2021 10:23:59 NO SIGNIFICANT CHANGES LR 1L in the ED with improvement of heart rate Troponin negative x2 Cardiac monitoring Continue Eliquis and metoprolol Trend CBC and CMP, add TSH with reflex Family request cardiology consult. A-fib seems to have been an isolated incident and is now in NRS but will consult per request. (3) Fever: Code(s): R50.9 - Fever, unspecified Status: Acute Assessment and Plan: Patient developed fever (101F) after arrival to inpatient room - given acetaminophen, now resolved Viral PCR:? Negative for COVID, flu, RSV No white count UA unremarkable CXR: Clear lungs, cardiomediastinal silhouette is stable. Tylenol p.r.n. for pain or fever (4) Diabetes type 2, controlled: Code(s): E11.9 - Type 2 diabetes mellitus without complications Status: Acute Assessment and Plan: Hypoglycemia protocol POC blood glucose AC/HS correct regimen ordered - low dose TID WM and HS Continue home medication:? Metformin on hold, continue glimepiride A1C done in January of this year, 6.2 and unchanged from prior (5) Anemia: Code(s): D64.9 - Anemia, unspecified Status: Acute Assessment and Plan: Chronic anemia, range of 11-13. Hgb on admission was 12.0, repeated on 08/09 is 10.8 anemia labs ordered on asa and Eliquis Plan Feeding:Heart healthy Analgesia: Thromboembolic prophylaxis: SCD, Eliquis Ulcer prophylaxis: N/A Glycemic control: SSI + glimepiride Bowel regimen: n/a Lines: PIV Antibiotics: n/a Subjective Date/time seen: 08/09/23 07:42 Interval history: HPI obtained from chart, 72 y/o M presents here with transient AMS this morning with PMH of A-Fib (success ablation - no reoccurence for the past few years), hypertension, high cholesterol, and diabetes. History obtained from patient and .? Patient woke up this morning and attempted to do his daily routine.? found patient around 8:00 a.m. deviating from his normal routine.? He was attempting to put on pants and was too confused to complete task.? described it as delirious.? No changes in speech, no focal weakness or numbness that patient or observed or can endorse.? Patient received COVID and flu vaccination yesterday.? Patient felt a little unwell yesterday evening.? Denied shortness of breath, cough, nausea or vomiting.? was able to capture a telemetry reading while at home.? Per ED provider who reviewed telemetry, tracing was consistent with atrial fibrillation which occurred around 832 this morning coinciding with confusion.? After arrival to the ED, tachycardia and confusion resolved.? Patient now A&Ox4. Interval history: 08-09:
[2023-08-09 08:17] LABS: Iron 27 ug/dL (49-181)
[2023-08-09 08:18] LABS: Glucose Point of Care 126 mg/dl (65-105)
[2023-08-09] MEDS: MAGNESIUM OXIDE 400 MG TABLET PO (08:24)
[2023-08-09] MEDS: hydroCHLOROthiazide 12.5 MG CAPSULE PO (08:24)
[2023-08-09] MEDS: MULTIVITAMINS THERAPEUTIC TAB (*BKC) 1 TABLET PO (08:24)
[2023-08-09] MEDS: APIXABAN 5 MG TABLET PO (08:24)
[2023-08-09] MEDS: LOSARTAN POTASSIUM 100 MG TABLET PO (08:24)
[2023-08-09] MEDS: ASPIRIN 81 MG ENTERIC TABLET PO (08:24)
[2023-08-09] MEDS: GLIMEPIRIDE 2 MG TABLET PO (08:24)
[2023-08-09] MEDS: METOPROLOL SUCCINATE EXT REL 100 MG TABCR PO (08:25)
[2023-08-09 08:26] LABS: Percent Iron Saturation 11 % (20-50)
[2023-08-09 09:45] LABS: Folic Acid > 20.0 ng/mL (2.76->20)
[2023-08-09 12:03] LABS: Glucose Point of Care 139 mg/dl (65-105)
--- NOTE | 2023-08-09 12:08 | WPDNEURCNPN ---
Consult date: 08/09/23 HPI: Marcos Calderon is a 72 year old male has being admitted to the hospital through the emergency room where he presented with the information that he has received the flu shot and not feeling good. Totally this morning he was extremely confused and did not know how to put his pants on, forgot that he has a dog, he gave no history of any other associated general symptomatology. He has been taking apixaban 5 mg twice a day, losartan 100 mg daily, hydrochlorothiazide 12.5 mg daily, aspirin 81 mg daily, atorvastatin 40 mg 2 of them at night and metformin 500 mg twice a day, he is not allergic to any medication, he does have ongoing history of 1. Congestive heart failure 2. Diabetes mellitus 3. Hypertension 4. Mitral regurgitation and 5. Paroxysmal atrial fibrillation in addition to history of cardiac stenting and lung surgery is currently alcohol intake only 1 drinks per week and he is never a smoker. Initial exam generally was nonfocal, vital signs were normal except blood pressure 159/70 CBC was platelet count 132 basic metabolic panel with glucose 174 and sodium 135, serology for the influenza a and B and RSV were negative, it was mention in the ER that an episode of AFib was captured earlier. Subsequent evaluation up until now documented no major stenosis on CTA except the 10% stenosis of left carotid bulb and small amount of plaque without hemodynamically significant stenosis on CTA and normal MRI subsequently of the brain. Echocardiogram at this particular time is pending and patient is receiving aspirin 81 mg daily, apixaban 5 mg twice a day, losartan 100 mg daily, and other medications as well. [facility] Past Medical History Medical History Abnormal colonoscopy 02/24 Repeat 03/01 Adenomatous colon polyp Congestive heart failure (CHF) EF 60% Diabetes mellitus History of cardiomyopathy Hypertension Mitral regurgitation Paroxysmal atrial fibrillation ST elevation myocardial infarction (STEMI) (~10/2021) Surgical History Surgical History H/O cardiac radiofrequency ablation History of heart artery stent (~10/2021) History of lung surgery Hx of colonoscopy Family History Family History Unknown No problems noted. Sibling Diabetes mellitus Acute myocardial infarction Depression Heart disease Hypertension Malignant neoplasm of prostate No cardiac disease Father Heart disease Diabetes mellitus Hypertension No cardiac disease Other Colon polyp Social History Social History (Updated 08/09/23 @ 00:24 by Kristal Duff APRN) Social History: Currently lives at home with his . Surrogate decision maker Lisette Calderon, . Full code. Smoking status: Never smoker Second hand tobacco smoke exposure: No Alcohol intake: current Drinks per week: 1 Alcohol use details: 1 or 2 x month Substance use: never Substance use type: does not use Lack of Transportation: No Lack of Food: Never True Current Housing: I Have Housing Concerned About Future Housing: No Difficulty Paying Gas/Electric Bills: No Difficulty Paying for Meds: No Currently Unemployed: No Education: High School Diploma/GED Difficulty w/ Childcare or Family Care: No Living arrangements: with family Occupation/Education: retired Gender identity (if verbalized by the patient): Male Sexual Orientation (if Verbalized by the Patient): Straight or Heterosexual Spiritual care concerns: No Agree to blood products: Yes Meds Home Medications and Allergies Home Medications Medication Instructions Recorded Confirmed Type apixaban 5 mg tablet (Eliquis) 5 mg PO BID 04/20/20 08/08/23 History losartan 100 mg tablet 100 mg PO DAILY 04/20/20 08/08/23 History magnesium 200 mg tablet 400 mg PO BID 04/20/20 08/08/23
--- NOTE | 2023-08-09 13:00 | WPDNEURCNPN ---
Assessment and Plan Assessment and plan (1) Brain TIA: Code(s): G45.9 - Transient cerebral ischemic attack, unspecified Status: Acute Plan 1. TIA 2. History of atrial fibrillation for which cardiac consultation has been obtained and is to be seen as the patient also has an appointment with the technical sales representative as an outpatient. 3. Diabetes mellitus under control 4. nonsignificant stenosis has been explained to the family. 5. Senior Director Creative Services is to see him today. Consult date: 08/09/23 HPI: Marcos Calderon is a 72 year old male Has been admitted to the hospital through the emergency room where he presented with the information that he has received the flu short and not feeling good. This morning he was extremely confused and did not know how to put his pants on, forgot that he has a daughter, he gave no history of any other associated generalized symptomatology. He has been taking apixaban 5 mg twice a day, losartan 100 mg daily, hydrochlorothiazide 12.5 mg daily, aspirin 81 mg daily, atorvastatin 40 mg 2 of them at night and metformin 500 mg twice a day, he is not allergic to any medication, he does have ongoing history of 1. Congestive heart failure 2. Diabetes mellitus 3. Hypertension 4. Mitral regurgitation 5. Paroxysmal atrial fibrillation in addition to history of cardiac stenting and lung surgery. Currently alcohol intake only 1 drink per week and he has other never a smoker. Initial examination generally was nonfocal vital signs were normal except blood pressure being 159/70 see BC was with platelet count of 132 basic metabolic panel with glucose of 174 and sodium 135 serology for the influenza a and B and R SV were negative, it was mention in the ER that an episode of AFib was captured earlier, subsequent evaluation up until now documented no major stenosis on CTA except the 10% stenosis of left carotid bulb and small amount of plaque without hemodynamically significant stenosis on CTA, normal MRI of the brain subsequently echocardiogram at this particular time is pending a patient receiving aspirin 81 mg daily, apixaban 5 mg twice a day, losartan 100 mg daily, and other medications as well Review of Systems Review of Systems: All systems reviewed & are unremarkable except as noted in HPI and below [facility] Past Medical History Medical History Abnormal colonoscopy 02/24 Repeat 03/01 Adenomatous colon polyp Congestive heart failure (CHF) EF 60% Diabetes mellitus History of cardiomyopathy Hypertension Mitral regurgitation Paroxysmal atrial fibrillation ST elevation myocardial infarction (STEMI) (~10/2021) Surgical History Surgical History H/O cardiac radiofrequency ablation History of heart artery stent (~10/2021) History of lung surgery Hx of colonoscopy Family History Family History Unknown No problems noted. Sibling Diabetes mellitus Acute myocardial infarction Depression Heart disease Hypertension Malignant neoplasm of prostate No cardiac disease Father Heart disease Diabetes mellitus Hypertension No cardiac disease Other Colon polyp Social History Social History (Updated 08/09/23 @ 00:24 by Kristal Duff APRN) Social History: Currently lives at home with his . Surrogate decision maker Lisette Calderon, . Full code. Smoking status: Never smoker Second hand tobacco smoke exposure: No Alcohol intake: current Drinks per week: 1 Alcohol use details: 1 or 2 x month Substance use: never Substance use type: does not use Lack of Transportation: No Lack of Food: Never True Current Housing: I Have Housing Concerned About Future Housing: No Difficulty Paying Gas/Electric Bills: No Difficulty Paying for Meds: No Currently Unemployed: No Education: High School Diploma/GED
--- NOTE | 2023-08-09 14:57 | PM.CNCAR ---
Assessment and Plan Assessment and plan (1) Altered mental status: Code(s): R41.82 - Altered mental status, unspecified Status: Acute Assessment and Plan: Patient was found to have altered mental status and thought to be a TIA. However easily could have been a metabolic problem related to his fever and rapid heart rate, rather than a neurologic event such as a TIA. No acute strokes or acute WEEDER problems were noted by MRI or CT scan. In any case he is back to normal. --resolved (2) Paroxysmal atrial fibrillation: Code(s): I48.0 - Paroxysmal atrial fibrillation Status: Acute Assessment and Plan: Patient has had paroxysmal atrial fibrillation status post AFib ablation a few years ago with no clinical recurrence. AFib ablation reduces the frequency but is not curative, which is why we recommend continuing anticoagulation. Despite compliance with metoprolol XL 100 mg daily the patient's heart rate was still high 1 AFib, in the 160s, when he had this episode of atrial fibrillation. On arrival here he was in sinus tachycardia. Since this is the 1st clinical episode, I do not think we need to make any major changes in medications, or even our approach. Perhaps this episode of atrial fibrillation was caused by the fever? --outpatient monitoring --periodic use of the [employer] jessica for surveillance --if recurrent episodes of altered mental status, or weakness, shortness of breath or chest pain occur then return to the emergency room. If AFib with rapid ventricular response is only incidentally noted by the [employer] mobile jessica, okay to take an extra metoprolol p.r.n.. --follow-up with Dr. Fitzgerald as scheduled in October. --okay for discharge from my point of view. (3) Fever: Code(s): R50.9 - Fever, unspecified Status: Acute Assessment and Plan: Admitted with a fever within 24 hours of getting his flu and COVID vaccinations, may have been an immune response to the vaccinations. No evidence of infection. --resolved History of Present Illness History of Present Illness Consult date/time: 08/09/23 14:57 Reason For Visit: AMS Narrative: Marcos Calderon is a 72-year-old male whom I was asked to see at the request of Darya Delvalle for my advice and opinion regarding his history of atrial fibrillation, in consultation. Mr. Holtmann is followed by Dr. Fitzgerald for his history of CAD, persistent??? AFib for which he takes Eliquis and metoprolol. He has had pulmonary vein isolation/AFib ablation was last seen by EP MD Dr. Aguayo in April 2022, with no evidence of recurrence. Per the family there is been no recurrence. (Dr. Fitzgerald's notes state persistent AFib and his exams show an irregular heart rate but we do not have any documentation of any recurrent AFib. He has the [employer] jessica and checks it infrequently since there has been no clinical atrial fibrillation. The patient got his flu and COVID vaccinations and developed a temperature of a 101?. The next morning, 08/08/2023, he awakened ?not right? with weakness and apparent confusion per his . They checked the [employer] jessica and he was in AFib with a rate of 168. Blood pressure was 159/63. He denied any chest pain or palpitations. His brought him to the emergency room and he was admitted with a diagnosis of altered mental status and possible TIA. His pulse was 122 and temperature was a 101?. Blood pressure was stable. His EKG shows sinus tachycardia and his fever has resolved. He feels back to normal hopes to be discharged. Telemetry has not shown any atrial fibrillation. He has been compliant with his Eliquis and metoprolol. Personally reviewed the [employer] rhythm strip and agree that this shows AFib rate in the 160s. Echo today showed normal LV function and no shunt by bubble study 08/08/2023 EKG: Sinus tachycardia rate [address], poor R-wave progression, personally reviewed
--- NOTE | 2023-08-09 16:31 | P.DS_ITS ---
DS: Admitting Diagnosis Discharge Date 08/09/23 Admitting Diagnosis AMS DS: Discharge Diagnosis Discharge Diagnosis (1) Brain TIA: Code(s): G45.9 - Transient cerebral ischemic attack, unspecified Status: Acute Assessment and Plan: * Head CT:? No significant abnormality seen * Head CTA 1. Small amount of atherosclerotic plaque with 0% stenosis of the right carotid bulb relative to normal distal artery lumen diameter (NASCET criteria). 2. 10% stenosis of the left carotid bulb relative to normal distal artery lumen diameter. 3. Small amount of atherosclerotic plaque without hemodynamic significant stenosis at the bilateral carotid siphons. Otherwise unremarkable cerebral CT angiogram. * MRI-Normal brain * Consult to Neurology - Jax STEIN * Brain MRI:? Normal brain, no infarct. * Neurological checks Q2H * Currently on daily aspirin, 81 mg * Cardiac echo with bubble study pending * NIH 0 * THS normal * Lipid panel from 01/2030-Triglycerides 100, Total cholesterol 98, LDL 95, HDL 36 (2) Atrial fibrillation: Code(s): I48.91 - Unspecified atrial fibrillation Status: Acute Assessment and Plan: * Given metoprolol 100 mg p.o. * Initial EKG SINUS TACHYCARDIA INFERIOR MYOCARDIAL INFARCTION , PROBABLY OLD [40+ ms Q WAVE AND/OR ST/T ABNORMALITY IN II/aVF] COMPARED TO ECG 10/11/2021 10:23:59 NO SIGNIFICANT CHANGES * LR 1L in the ED with improvement of heart rate * Troponin negative x2 * Cardiac monitoring * Continue Eliquis and metoprolol * Trend CBC and CMP, add TSH with reflex * Family request cardiology consult. A-fib seems to have been an isolated incident and is now in NRS but will consult per request. (3) Fever: Code(s): R50.9 - Fever, unspecified Status: Acute Assessment and Plan: * Patient developed fever (101F) after arrival to inpatient room - given acetaminophen, now resolved * Viral PCR:? Negative for COVID, flu, RSV * No white count * UA unremarkable * CXR: Clear lungs, cardiomediastinal silhouette is stable. * Tylenol p.r.n. for pain or fever (4) Diabetes type 2, controlled: Code(s): E11.9 - Type 2 diabetes mellitus without complications Status: Acute Assessment and Plan: * Hypoglycemia protocol * POC blood glucose AC/HS * correct regimen ordered - low dose TID WM and HS * Continue home medication:? Metformin on hold, continue glimepiride * A1C done in January of this year, 6.2 and unchanged from prior (5) Anemia: Code(s): D64.9 - Anemia, unspecified Status: Acute Assessment and Plan: Chronic anemia, range of 11-13. * Hgb on admission was 12.0, repeated on 08/09 is 10.8 * anemia labs ordered * on asa and Eliquis Plan Feeding:Heart healthy Analgesia: Thromboembolic prophylaxis: SCD, Eliquis Ulcer prophylaxis: N/A Glycemic control: SSI + glimepiride Bowel regimen: n/a Lines: PIV Antibiotics: n/a DS: Summary Hospital Course Hospital Course: 72 y/o M presents here with transient AMS this morning with PMH of A-Fib (success ablation - no reoccurence for the past few years), hypertension, high cholesterol, and diabetes. History obtained from patient and .? Patient woke up this morning and attempted to do his daily routine.? found patient around 8:00 a.m. deviating from his normal routine.? He was attempting to put on pants and was too confused to complete task.? described it as delirious.? No changes in speech, no focal weakness or numbness that patient or obs
--- NOTE | 2023-08-09 16:31 | PM.DS ---
DS: Admitting Diagnosis Discharge Date 08/09/23 Admitting Diagnosis AMS DS: Discharge Diagnosis Discharge Diagnosis (1) Brain TIA: Code(s): G45.9 - Transient cerebral ischemic attack, unspecified Status: Acute Assessment and Plan: Head CT:? No significant abnormality seen Head CTA 1. Small amount of atherosclerotic plaque with 0% stenosis of the right carotid bulb relative to normal distal artery lumen diameter (NASCET criteria). 2. 10% stenosis of the left carotid bulb relative to normal distal artery lumen diameter. 3. Small amount of atherosclerotic plaque without hemodynamic significant stenosis at the bilateral carotid siphons. Otherwise unremarkable cerebral CT angiogram. MRI-Normal brain Consult to Neurology - Jax STEIN Brain MRI:? Normal brain, no infarct. Neurological checks Q2H Currently on daily aspirin, 81 mg Cardiac echo with bubble study pending [facility] 0 THS normal Lipid panel from 01/2030-Triglycerides 100, Total cholesterol 98, LDL 95, HDL 36 (2) Atrial fibrillation: Code(s): I48.91 - Unspecified atrial fibrillation Status: Acute Assessment and Plan: Given metoprolol 100 mg p.o. Initial EKG SINUS TACHYCARDIA INFERIOR MYOCARDIAL INFARCTION , PROBABLY OLD [40+ ms Q WAVE AND/OR ST/T ABNORMALITY IN II/aVF] COMPARED TO ECG 10/11/2021 10:23:59 NO SIGNIFICANT CHANGES LR 1L in the ED with improvement of heart rate Troponin negative x2 Cardiac monitoring Continue Eliquis and metoprolol Trend CBC and CMP, add TSH with reflex Family request cardiology consult. A-fib seems to have been an isolated incident and is now in NRS but will consult per request. (3) Fever: Code(s): R50.9 - Fever, unspecified Status: Acute Assessment and Plan: Patient developed fever (101F) after arrival to inpatient room - given acetaminophen, now resolved Viral PCR:? Negative for COVID, flu, RSV No white count UA unremarkable CXR: Clear lungs, cardiomediastinal silhouette is stable. Tylenol p.r.n. for pain or fever (4) Diabetes type 2, controlled: Code(s): E11.9 - Type 2 diabetes mellitus without complications Status: Acute Assessment and Plan: Hypoglycemia protocol POC blood glucose AC/HS correct regimen ordered - low dose TID WM and HS Continue home medication:? Metformin on hold, continue glimepiride A1C done in January of this year, 6.2 and unchanged from prior (5) Anemia: Code(s): D64.9 - Anemia, unspecified Status: Acute Assessment and Plan: Chronic anemia, range of 11-13. Hgb on admission was 12.0, repeated on 08/09 is 10.8 anemia labs ordered on asa and Eliquis Plan Feeding:Heart healthy Analgesia: Thromboembolic prophylaxis: SCD, Eliquis Ulcer prophylaxis: N/A Glycemic control: SSI + glimepiride Bowel regimen: n/a Lines: PIV Antibiotics: n/a DS: Summary Hospital Course Hospital Course: 72 y/o M presents here with transient AMS this morning with PMH of A-Fib (success ablation - no reoccurence for the past few years), hypertension, high cholesterol, and diabetes. History obtained from patient and .? Patient woke up this morning and attempted to do his daily routine.? found patient around 8:00 a.m. deviating from his normal routine.? He was attempting to put on pants and was too confused to complete task.? described it as delirious.? No changes in speech, no focal weakness or numbness that patient or observed or can endorse.? Patient received COVID and flu vaccination yesterday.? Patient felt a little unwell yesterday evening.? Denied shortness of breath, cough, nausea or vomiting.? was able to capture a telemetry reading while at home.? Per ED provider who reviewed telemetry, tracing was consistent with atrial fibrillation which occurred around 832 this morning coinciding with confusion.? After arrival to the ED, tachycardia and confusion resolved.? Patient now A&Ox
[2023-08-09 17:01] LABS: Glucose Point of Care 117 mg/dl (65-105)
== END 2023-08-09 18:00 | disposition home or self-care (01) ==
LOC: ANHED 15:29 → ANH2MED 16:18
PROVIDERS: Nurse Practitioner Acute Care; Student in an Organized Health Care Education/Training Program; Admitting Provider Internal Medicine; Emergency Provider Emergency Medicine; PCP Family Medicine Adolescent Medicine; Visit Provider Chiropractor
DX: G45.9 Transient cerebral ischemic attack, unspecified (principal); I48.91 Unspecified atrial fibrillation; R50.9 Fever, unspecified; E11.9 Type 2 diabetes mellitus without complications; D64.9 Anemia, unspecified; R00.0 Tachycardia, unspecified; I11.0 Hypertensive heart disease with heart failure; I50.9 Heart failure, unspecified; I34.0 Nonrheumatic mitral (valve) insufficiency; E78.00 Pure hypercholesterolemia, unspecified; I25.2 Old myocardial infarction; I35.0 Nonrheumatic aortic (valve) stenosis; I37.1 Nonrheumatic pulmonary valve insufficiency; I25.10 Atherosclerotic heart disease of native coronary artery without angina pectoris; Z20.822 Contact with and (suspected) exposure to COVID-19; Z95.5 Presence of coronary angioplasty implant and graft; F10.90 Alcohol use, unspecified, uncomplicated; Z79.01 Long term (current) use of anticoagulants; Z79.82 Long term (current) use of aspirin; Z79.84 Long term (current) use of oral hypoglycemic drugs; Z79.899 Other long term (current) drug therapy; Z83.3 Family history of diabetes mellitus; Z82.49 Family history of ischemic heart disease and other diseases of the circulatory system
CPT/HCPCS: 36415; 70450; 70496; 70498; 70553; 71045; 80048; 80053; 81001; 82607; 82746; 82948; 83540; 83550; 84443; 84484; 85025; 87637; 93005; 93306; 96360; 96361; 96375; 99285; A9270; A9577; G0378; J7120; Q9967